=== PATIENT | male | born 1955 | race African-American/Black ===

== ENCOUNTER 2017-04-03 20:01 | Inpatient (IN) | payer OTHER ==
[~2017-04-03] VITALS: Ht 175.3 cm; Wt 91.6 kg
[2017-04-03 20:01] VITALS: BP 145/85
[2017-04-03] MEDS ORDERED: Solu-MEDROL 125mg Inj IVP ONE (20:15)
[2017-04-03] MEDS ORDERED: Sodium Chloride 500ML 500 ML IV ONE (20:15)
[2017-04-03] MEDS: Ipratropium 0.02% Inh Soln 2.5ml UD HHN SCH ×3 (20:27→20:57)
[2017-04-03] MEDS: Albuterol ud Inhalation HHN SCH ×3 (20:27→20:57)
[2017-04-03 21:15] LABS: BASOPHILS % (AUTO) 2.3 % (0.0-2.0); EOSINOPHILS % (AUTO) 0.3 % (0.0-3.0); HEMATOCRIT 39.1 % (42.0-52.0); HEMOGLOBIN 12.9 G/DL (14.2-18.0); MEAN CORPUSCULAR VOLUME 86 FL (80-99); MONOCYTES % (AUTO) 13.5 % (1.0-10.0); NEUTROPHILS % (AUTO) 74.8 % (45.0-75.0); PLATELET COUNT 356 K/UL (150-450); RED BLOOD COUNT 4.53 M/UL (4.70-6.10); RED CELL DISTRIBUTION WIDTH 12.5 % (11.6-14.8)
[2017-04-03 21:16] LABS: APPEARANCE,URINE CLEAR; BILIRUBIN, URINE NEGATIVE (NEGATIVE); COLOR,URINE PALE YELLOW; GLUCOSE, URINE (UA) NEGATIVE (NEGATIVE); KETONES,URINE NEGATIVE (NEGATIVE); LEUKOCYTE ESTERASE ,URINE NEGATIVE (NEGATIVE); NITRITE,URINE NEGATIVE (NEGATIVE); PH,URINE 5 (4.5-8.0); PROTEIN,URINE 2+ (NEGATIVE); UROBILINOGEN,URINE NORMAL MG/DL (0.0-1.0)
[2017-04-03 21:23] LABS: ANION GAP 8 mmol/L (5-15); BLOOD UREA NITROGEN 9 mg/dL (7-18); CARBON DIOXIDE 29 MMOL/L (21-32); CHLORIDE 101 MMOL/L (98-107); CREATININE 1.2 MG/DL (0.55-1.30); POTASSIUM 2.9 MMOL/L (3.5-5.1); SODIUM 137 MMOL/L (136-145)
[2017-04-03 21:36] LABS: ALANINE AMINOTRANSFERASE 21 U/L (12-78); ALBUMIN 3.7 G/DL (3.4-5.0); ALBUMIN/GLOBULIN RATIO 0.9 (1.0-2.7); ALKALINE PHOSPHATASE 81 U/L (46-116); ASPARTATE AMINO TRANSFERASE 18 U/L (15-37); BILIRUBIN,TOTAL 0.2 MG/DL (0.2-1.0); CKMB 1.3 NG/ML (0.0-3.6); CREATINE KINASE 331 U/L (26-308)
[2017-04-03] MEDS ORDERED: Nitroglycerin Subl 0.4mg tab SL PRN ×2 (21:45→22:00)
[2017-04-03] MEDS ORDERED: Enalaprilat 2.5mg/2ml Inj IV PRN (22:00)
[2017-04-03] MEDS ORDERED: Ketorolac 30mg Inj IV PRN (22:00)
[2017-04-03] MEDS ORDERED: Morphine Sulfate 2mg/ml Inj IVP PRN (22:00)
[2017-04-03] MEDS ORDERED: dilTIAZem HCl 25mg/5ml Inj IV PRN (22:00)
[2017-04-03] MEDS ORDERED: Miralax 17gm pkt ORAL PRN (22:00)
[2017-04-03] MEDS ORDERED: Albuterol/Ipratropium 3ml neb HHN PRN (22:00)
[2017-04-03 22:01] VITALS: BP 139/71
--- NOTE | 2017-04-03 22:34 | Emergency Room Report ---
History of Present Illness General Chief Complaint: Dyspnea/Respdistress Source: Patient Present Illness HPI 60-year-old male presents ED for evaluation. Patient coming from [facility] and shoulder today complaining of shortness of breath. Per EMS patient was wheezing and was given breathing treatments. Patient states he is feeling somewhat better. Denies history of back. Smoking or drug use. History. Denies chest pain. Denies fevers or chills or cough. No other aggravating relieving factors. Denies any other associated symptoms Allergies: Coded Allergies: No Known Allergies (Unverified , 04/03/17) Patient History Past Medical History: none Past Surgical History: none Pertinent Family History: none Social History: Denies: smoking, alcohol use, drug use Immunizations: UTD Reviewed Nursing Documentation: PMH: Agreed, PSxH: Agreed Nursing Documentation-PMH Hx Hypertension: Yes Hx Diabetes: Yes Review of Systems All Other Systems: negative except mentioned in HPI Physical Exam Vital Signs Date Time Temp Pulse Resp B/P (MAP) Pulse Ox O2 Delivery O2 Flow Rate FiO2 04/03/17 19:54 99.0 71 20 145/85 99 Room Air 04/03/17 20:27 21 Sp02 EP Interpretation: reviewed, normal General Appearance: no apparent distress, alert, GCS 15, non-toxic Head: normocephalic, atraumatic Eyes: bilateral eye normal inspection, bilateral eye PERRL ENT: hearing grossly normal, normal pharynx, no angioedema, normal voice Neck: full range of motion, supple/symm/no masses Respiratory: chest non-tender, speaking full sentences, wheezing Cardiovascular #1: no edema, tachycardia Cardiovascular #2: 2+ carotid (R), 2+ carotid (L), 2+ radial (R), 2+ radial (L) , 2+ dorsalis pedis (R), 2+ dorsalis pedis (L) Gastrointestinal: normal bowel sounds, non tender, soft, non-distended, no guarding, no rebound Rectal: deferred Genitourinary: normal inspection, no CVA tenderness Musculoskeletal: back normal, gait/station normal, normal range of motion, non- tender Neurologic: alert, oriented x3, responsive, motor strength/tone normal, sensory intact, speech normal Psychiatric: judgement/insight normal, memory normal, mood/affect normal, no suicidal/homicidal ideation Reflexes: 3+ bicep (R), 3+ bicep (L), 3+ tricep (R), 3+ tricep (L), 3+ knee (R) , 3+ knee (L) Skin: normal color, no rash, warm/dry, well hydrated Lymphatic: no adenopathy Medical Decision Making Diagnostic Impression: Primary Impression: Respiratory distress Additional Impression: ACS (acute coronary syndrome) ER Course Hospital Course 60-year-old male presents ED complaining of shortness of breath, wheezing Differential diagnoses include: SC/unstable angina, COPD, pneumonia Clinical course Patient placed on stretcher. on diagnostic cardiac sonographer. After initial history and physical I ordered labs, EKG, chest x-ray, nebs labs reviewed- no leukocytosis, hb/hct stable, electrolytes ok, trop 0.131 EKG - sinus tachycardia Chest x-ray- no acute infiltrate noted After breathing treatments patient states breathing has improved. However he is complaining of chest pain which just started. Midsternal, pressure-like. Has history of hypertension. repeat EKG also shows sinus tachy Given nitroglycerin with chest pain resolved. Given elevated troponin we will admit patient. Given aspirin. Case discussed with Dr. Castellon and he agreed to accept the patient to his service for further care and support I. I feel this is a highly complex case requiring extensive working including EKG/Rhythm strip, Xray/CT/US, Blood/urine lab work, repeat exams while in ED, and administration of strong opiates/narcotics for pain control, admission to hospital or close patient follow up. Diagnosis - ACS, respiratory distress admitted to telemetry in serious condition Labs Test 04/03/17 20:46 White Blood Count 10.0 K/UL (4.8-10.8) Red Blood Count 4.53 M/UL (4.70-6.10) Hemoglobin 12.9 G/DL (14.2-18.0) Hematocrit 39.1 % (42.0-52.0) Mean Corpuscular Volume 86 FL (80-99) Mean Corpuscular Hemoglobin 28.4 PG (27.0-31.0) Mean Corpuscular Hemoglobin Concent 32.9 G/DL (32.0-36.0) Red Cell Distribution Width 12.5 % (11.6-14.8) Platelet Count 356 K/UL (150-450) Mean Platelet Volume 5.8 FL (6.5-10.1) Neutrophils (%) (Auto) 74.8 % (45.0-75.0) Lymphocytes (%) (Auto) 9.0 % (20.0-45.0) Monocytes (%) (Auto) 13.5 % (1.0-10.0) Eosinophils (%) (Auto) 0.3 % (0.0-3.0) Basophils (%) (Auto) 2.3 % (0.0-2.0) Urine Color Pale yellow Urine Appearance Clear Urine pH 5 (4.5-8.0) Urine Specific [place] 1.015 (1.005-1.035) Urine Protein 2+ (NEGATIVE) Urine Glucose (UA) Negative (NEGATIVE) Urine Ketones Negative (NEGATIVE) Urine Occult Blood 4+ (NEGATIVE) Urine Nitrite Negative (NEGATIVE) Urine Bilirubin Negative (NEGATIVE) Urine Urobilinogen Normal MG/DL (0.0-1.0) Urine Leukocyte Esterase Negative (NEGATIVE) Urine RBC 0-2 /HPF (0 - 0) Urine WBC 0-2 /HPF (0 - 0) Urine Squamous Epithelial Cells None /LPF (NONE/OCC) Urine Bacteria Few /HPF (NONE) Urine Yeast Few /HPF (NONE) Sodium Level 137 MMOL/L (136-145) Potassium Level 2.9 MMOL/L (3.5-5.1) Chloride Level 101 MMOL/L (98-107) Carbon Dioxide Level 29 MMOL/L (21-32) Anion Gap 8 mmol/L (5-15) Blood Urea Nitrogen 9 mg/dL (7-18) Creatinine 1.2 MG/DL (0.55-1.30) Estimat Glomerular Filtration Rate > 60 mL/min (>60) Glucose Level 124 MG/DL (74-106) Lactic Acid Level 1.60 mmol/L (0.66-2.22) Calcium Level 9.0 MG/DL (8.5-10.1) Total Bilirubin 0.2 MG/DL (0.2-1.0) Aspartate Amino Transf (AST/SGOT) 18 U/L (15-37) Alanine Aminotransferase (ALT/SGPT) 21 U/L (12-78) Alkaline Phosphatase 81 U/L (46-116) Total Creatine Kinase 331 U/L (26-308) Creatine Kinase MB 1.3 NG/ML (0.0-3.6) Creatine Kinase MB Relative Index 0.3 Troponin I 0.193 ng/mL (0.000-0.056) Pro-B-Type Natriuretic Peptide 252 pg/mL (0-125) Total Protein 7.9 G/DL (6.4-8.2) Albumin 3.7 G/DL (3.4-5.0) Globulin 4.2 g/dL Albumin/Globulin Ratio 0.9 (1.0-2.7) EKG Diagnostic Results Rate: tachycardiac Rhythm: NSR ST Segments: no acute changes ASA given to the pt in ED: Yes Rhythm Strip Diag. Results EP Interpretation: yes Rhythm: NSR, no PVC's, no ectopy Chest X-Ray Diagnostic Results Chest X-Ray Diagnostic Results : Chest X-Ray Ordered: Yes # of Views/Limited/Complete: 1 View Indication: Shortness of Breath EP Interpretation: Yes Interpretation: no consolidation, no effusion, no pneumothorax, no acute cardiopulmonary disease Impression: No acute disease Electronically Signed by: Electronically signed by Oscar Mckenzie MD Last Vital Signs Date Time Temp Pulse Resp B/P (MAP) Pulse Ox O2 Delivery O2 Flow Rate FiO2 04/03/17 22:04 168/96 04/03/17 21:16 108 22 100 Room Air 21 04/03/17 20:01 99.0 Status: improved Disposition: ADMITTED INPATIENT Condition: Serious Referrals: NON PHYSICIAN (PCP) OSCAR MCKENZIE M.D. Apr 03, 2017 22:34
[2017-04-03] MEDS ORDERED: METFORMIN HCL500 M1 ORAL (23:54)
[2017-04-03] MEDS ORDERED: MICROZIDE12.5 M1 PO (23:56)
[2017-04-03] MEDS ORDERED: ATORVASTATIN CA20 MG ORAL (23:56)
[2017-04-04] VITALS (8 sets, daily range): BP systolic 120–157; BP diastolic 68–89
[2017-04-04] MEDS ORDERED: Potassium Chloride 40 MEQ in Sodium Chloride 500ML 550 ML IVPB ONE (05:45)
[2017-04-04] MEDS ORDERED: SODIUM CHLORIDE IVPB SCH ×2 (06:00)
[2017-04-04] MEDS ORDERED: POTASSIUM CHLORIDE IVPB SCH ×2 (06:00)
[2017-04-04 07:22] LABS: HEMATOCRIT 37.4 % (42.0-52.0); HEMOGLOBIN 12.5 G/DL (14.2-18.0); MEAN CORPUSCULAR VOLUME 86 FL (80-99); PLATELET COUNT 340 K/UL (150-450); RED BLOOD COUNT 4.34 M/UL (4.70-6.10); WHITE BLOOD COUNT 7.9 K/UL (4.8-10.8)
[2017-04-04 07:47] LABS: CHOLESTEROL 229 MG/DL (< 200); HDL CHOLESTEROL 45 MG/DL (40-60); TRIGLYCERIDES 29 MG/DL (30-150)
[2017-04-04 08:04] LABS: INR 1.1 (0.9-1.1)
[2017-04-04] MEDS ORDERED: Aspirin Baby 81mg ORAL SCH (09:00)
[2017-04-04] MEDS: Potassium Chloride 40 MEQ in Sodium Chloride 500ML 550 ML IVPB SCH ×2 (09:24→14:16)
[2017-04-04] MEDS: Heparin 5000 units/ml inj SUBQ SCH ×2 (09:26→20:42)
--- NOTE | 2017-04-04 10:25 | Diagnostic Imaging Report ---
Indication: Shortness of breath Technique: One view of the chest Comparison: none Findings: There is equivocal minimal interstitial congestion. No focal infiltrates or effusions. The heart size is normal. The aorta is tortuous. The upper mediastinum is unremarkable. Impression: Equivocal minimal interstitial congestion-correlate with clinical findings. Negative for infiltrate
--- NOTE | 2017-04-04 13:11 | History and Physical ---
History of Present Illness General Date patient seen: Apr 04, 2017 Reason for Hospitalization: Dyspnea/Respdistress Present Illness HPI 60-year-old male with hx of DM, HTN presented to ER ED for evaluation of shortness of breath. Per EMS patient was wheezing and was given breathing treatments. Patient states he is feeling somewhat better. Denies history of smoking or drug use. He was taking shower when he felt that his SOB got worse. Allergies: Coded Allergies: No Known Allergies (Unverified , 04/03/17) Medication History Scheduled Atorvastatin Calcium* (Atorvastatin Calcium*), Unknown Dose ORAL BEDTIME, ( Reported) Metformin Hcl* (Metformin Hcl*), 500 MG ORAL DAILY, (Reported) Miscellaneous Medications Hydrochlorothiazide (Microzide), Unknown Dose PO, (Reported) Patient History Healthcare decision maker Resuscitation status Full Code Advanced Directive on File Past Medical/Surgical History Past Medical/Surgical History: (1) Diabetes mellitus (2) Hypertension Review of Systems All Other Systems: negative except mentioned in HPI Physical Exam General Appearance: WD/WN Lines, tubes and drains: peripheral HEENT: normocephalic, atraumatic Neck: non-tender, normal alignment Respiratory/Chest: chest wall non-tender, lungs clear Breasts: no masses Cardiovascular/Chest: normal rate, no JVD Abdomen: normal bowel sounds, soft Last 24 Hour Vital Signs Date Time Temp Pulse Resp B/P (MAP) Pulse Ox O2 Delivery O2 Flow Rate FiO2 04/04/17 12:00 97.7 71 18 146/86 95 Nasal Cannula 2.0 04/04/17 08:00 98.1 89 18 153/83 96 Nasal Cannula 2.0 04/04/17 04:00 81 04/04/17 04:00 97.7 82 18 120/68 98 Nasal Cannula 2.0 04/04/17 00:36 98.1 98 20 145/82 98 Nasal Cannula 2.0 90 04/04/17 00:27 99.0 97 17 137/73 98 Nasal Cannula 2.0 21 04/04/17 00:01 99.0 97 17 137/73 98 Nasal Cannula 2.0 04/03/17 22:04 168/96 04/03/17 22:01 98.9 105 18 139/71 99 Room Air 04/03/17 21:16 108 22 100 Room Air 21 04/03/17 20:58 106 22 100 Room Air 21 04/03/17 20:57 105 22 100 Room Air 21 04/03/17 20:43 102 22 100 Room Air 21 04/03/17 20:43 102 22 100 Room Air 21 04/03/17 20:27 99 22 95 Room Air 21 04/03/17 20:01 99.0 110 20 145/85 99 Room Air 04/03/17 20:01 110 20 Room Air 04/03/17 19:54 99.0 71 20 145/85 99 Room Air Intake and Output 04/03/17 04/04/17 19:00 07:00 Intake Total 500 ml Balance 500 ml IV Total 500 ml # Voids 2 Laboratory Tests Test 04/03/17 20:46 04/04/17 06:20 White Blood Count 10.0 K/UL (4.8-10.8) 7.9 K/UL (4.8-10.8) Red Blood Count 4.53 M/UL (4.70-6.10) L 4.34 M/UL (4.70-6.10) L Hemoglobin 12.9 G/DL (14.2-18.0) L 12.5 G/DL (14.2-18.0) L Hematocrit 39.1 % (42.0-52.0) L 37.4 % (42.0-52.0) L Mean Corpuscular Volume 86 FL (80-99) 86 FL (80-99) Mean Corpuscular Hemoglobin 28.4 PG (27.0-31.0) 28.9 PG (27.0-31.0) Mean Corpuscular Hemoglobin Concent 32.9 G/DL (32.0-36.0) 33.5 G/DL (32.0-36.0) Red Cell Distribution Width 12.5 % (11.6-14.8) 12.0 % (11.6-14.8) Platelet Count 356 K/UL (150-450) 340 K/UL (150-450) Mean Platelet Volume 5.8 FL (6.5-10.1) L 5.8 FL (6.5-10.1) L Neutrophils (%) (Auto) 74.8 % (45.0-75.0) % (45.0-75.0) Lymphocytes (%) (Auto) 9.0 % (20.0-45.0) L % (20.0-45.0) Monocytes (%) (Auto) 13.5 % (1.0-10.0) H % (1.0-10.0) Eosinophils (%) (Auto) 0.3 % (0.0-3.0) % (0.0-3.0) Basophils (%) (Auto) 2.3 % (0.0-2.0) H % (0.0-2.0) Urine Color Pale yellow Urine Appearance Clear Urine pH 5 (4.5-8.0) Urine Specific [place] 1.015 (1.005-1.035) Urine Protein 2+ (NEGATIVE) H Urine Glucose (UA) Negative (NEGATIVE) Urine Ketones Negative (NEGATIVE) Urine Occult Blood 4+ (NEGATIVE) H Urine Nitrite Negative (NEGATIVE) Urine Bilirubin Negative (NEGATIVE) Urine Urobilinogen Normal MG/DL (0.0-1.0) Urine Leukocyte Esterase Negative (NEGATIVE) Urine RBC 0-2 /HPF (0 - 0) H Urine WBC 0-2 /HPF (0 - 0) Urine Squamous Epithelial Cells None /LPF (NONE/OCC) Urine Bacteria Few /HPF (NONE) Urine Yeast Few /HPF (NONE) H Sodium Level 137 MMOL/L (136-145) Potassium Level 2.9 MMOL/L (3.5-5.1) L Chloride Level 101 MMOL/L (98-107) Carbon Dioxide Level 29 MMOL/L (21-32) Anion Gap 8 mmol/L (5-15) Blood Urea Nitrogen 9 mg/dL (7-18) Creatinine 1.2 MG/DL (0.55-1.30) Estimat Glomerular Filtration Rate > 60 mL/min (>60) Glucose Level 124 MG/DL (74-106) H Lactic Acid Level 1.60 mmol/L (0.66-2.22) Calcium Level 9.0 MG/DL (8.5-10.1) Total Bilirubin 0.2 MG/DL (0.2-1.0) Aspartate Amino Transf (AST/SGOT) 18 U/L (15-37) Alanine Aminotransferase (ALT/SGPT) 21 U/L (12-78) Alkaline Phosphatase 81 U/L (46-116) Total Creatine Kinase 331 U/L (26-308) H Creatine Kinase MB 1.3 NG/ML (0.0-3.6) Creatine Kinase MB Relative Index 0.3 Troponin I 0.193 ng/mL (0.000-0.056) Pro-B-Type Natriuretic Peptide 252 pg/mL (0-125) H Total Protein 7.9 G/DL (6.4-8.2) Albumin 3.7 G/DL (3.4-5.0) Globulin 4.2 g/dL Albumin/Globulin Ratio 0.9 (1.0-2.7) L Differential Total Cells Counted 100 Neutrophils % (Manual) 89 % (45-75) H Lymphocytes % (Manual) 9 % (20-45) L Monocytes % (Manual) 2 % (1-10) Eosinophils % (Manual) 0 % (0-3) Basophils % (Manual) 0 % (0-2) Band Neutrophils 0 % (0-8) Platelet Estimate Adequate Platelet Morphology Normal Red Blood Cell Morphology Normal Prothrombin Time 11.0 SEC (9.30-11.50) Prothromb Time International Ratio 1.1 (0.9-1.1) Activated Partial Thromboplast Time 31 SEC (23-33) C-Reactive Protein, Quantitative 2.1 mg/dL (0.00-0.90) H Triglycerides Level 29 MG/DL (30-150) L Cholesterol Level 229 MG/DL (< 200) H LDL Cholesterol 166 mg/dL (<100) H HDL Cholesterol 45 MG/DL (40-60) Cholesterol/HDL Ratio 5.1 (3.3-4.4) H Thyroid Stimulating Hormone (TSH) 0.052 uiU/mL (0.358-3.740) Microbiology Date/Time Source Procedure Growth Status 04/03/17 20:46 Nasal Nares Influenza Types A,B Antigen (JOSE ANTONIO) - Final Complete Height (Feet): 5 Height (Inches): 9.00 Weight (Pounds): 202 Medications Current Medications Medications (Trade) Dose Ordered Sig/Edward Route PRN Reason Start Time Stop Time Status Last Admin Dose Admin Acetaminophen (Tylenol) 650 mg Q4H PRN ORAL FEVER 04/03/17 22:00 05/03/17 21:59 Albuterol/ Ipratropium (Albuterol/ Ipratropium) 3 ml EVERY 4 HOURS PRN HHN Shortness of Breath 04/03/17 22:00 04/08/17 21:59 Aspirin (ASA) 162 mg DAILY ORAL 04/04/17 09:00 05/04/17 08:59 04/04/17 09:25 Diltiazem HCl (Cardizem) 10 mg EVERY HOUR PRN IV heart rate more than 120, 04/03/17 22:00 05/03/17 21:59 Enalaprilat (Vasotec) 2.5 mg EVERY 6 HOURS PRN IV sbp more than 160 04/03/17 22:00 05/03/17 21:59 Heparin Sodium (Porcine) (Heparin 5000 units/ml) 5,000 units EVERY 12 HOURS SUBQ 04/04/17 09:00 05/04/17 08:59 04/04/17 09:26 Ketorolac Tromethamine (Toradol 30mg) 30 mg Q6HR PRN IV moderate pain ( 4-6) 04/03/17 22:00 04/08/17 21:59 Morphine Sulfate (Morphine Sulfate) 2 mg EVERY 4 HOURS PRN IVP severe Pain (Pain Scale 7-10) 04/03/17 22:00 04/10/17 21:59 Nitroglycerin (Ntg) 0.4 mg Q5M PRN SL Prn Chest Pain 04/03/17 21:45 05/03/17 21:44 04/03/17 22:04 Nitroglycerin (Ntg) 0.4 mg Q5M PRN SL Prn Chest Pain 04/03/17 22:00 05/03/17 21:59 Ondansetron HCl (Zofran) 4 mg Q6H PRN IVP Nausea & Vomiting 04/03/17 22:00 05/03/17 21:59 Polyethylene Glycol (Miralax) 17 gm DAILYPRN PRN ORAL Constipation 04/03/17 22:00 05/03/17 21:59 Potassium Chloride 40 meq/ Sodium Chloride 570 ml @ 142.5 mls/ hr EVERY 4 HOURS IVPB 04/04/17 09:00 04/04/17 16:59 04/04/17 09:24 Temazepam (Restoril) 15 mg HSPRN PRN ORAL Insomnia 04/03/17 22:00 04/10/17 21:59 Assessment/Plan Problem List: (1) Respiratory distress ICD Codes: R06.03 - Acute respiratory distress SNOMED: 219880681 (2) ACS (acute coronary syndrome) ICD Codes: I24.9 - Acute ischemic heart disease, unspecified SNOMED: 860327352 (3) Elevated troponin ICD Codes: R74.8 - Abnormal levels of other serum enzymes SNOMED: 423860921, 644366020, 424220539 (4) Diabetes mellitus ICD Codes: E11.9 - Type 2 diabetes mellitus without complications SNOMED: 92809446 (5) Hypertension ICD Codes: I10 - Essential (primary) hypertension SNOMED: 43676575 Assessment/Plan echo CT anigo to rule out PE f/u troponin symptomatic treatment ILENE HANNA Apr 04, 2017 13:11
[2017-04-04 14:45] LABS: ALANINE AMINOTRANSFERASE 21 U/L (12-78); ALBUMIN 3.3 G/DL (3.4-5.0); ALBUMIN/GLOBULIN RATIO 0.8 (1.0-2.7); ALKALINE PHOSPHATASE 72 U/L (46-116); ANION GAP 14 mmol/L (5-15); ASPARTATE AMINO TRANSFERASE 22 U/L (15-37); BILIRUBIN,TOTAL 0.1 MG/DL (0.2-1.0); BLOOD UREA NITROGEN 9 mg/dL (7-18); CARBON DIOXIDE 23 MMOL/L (21-32); CHLORIDE 104 MMOL/L (98-107); CREATININE 1.1 MG/DL (0.55-1.30); POTASSIUM 3.6 MMOL/L (3.5-5.1); SODIUM 141 MMOL/L (136-145)
--- NOTE | 2017-04-04 15:18 | Cardiology Progress Note ---
Assessment/Plan Assessment/Plan [id number] nstemi dyspnea cardiac cause ? dm htn hld tobacco use do egk minor st changes echo trop ekg bb ntp statin ecotirn if recurent cp will need antiocoag or if cardiac enzyem are abn will likely need further cardiac valdes Objective Last 24 Hour Vital Signs Date Time Temp Pulse Resp B/P (MAP) Pulse Ox O2 Delivery O2 Flow Rate FiO2 04/04/17 12:00 90 04/04/17 12:00 97.7 71 18 146/86 95 Nasal Cannula 2.0 04/04/17 08:00 86 04/04/17 08:00 98.1 89 18 153/83 96 Nasal Cannula 2.0 04/04/17 04:00 81 04/04/17 04:00 97.7 82 18 120/68 98 Nasal Cannula 2.0 04/04/17 00:36 98.1 98 20 145/82 98 Nasal Cannula 2.0 90 04/04/17 00:27 99.0 97 17 137/73 98 Nasal Cannula 2.0 21 04/04/17 00:01 99.0 97 17 137/73 98 Nasal Cannula 2.0 04/03/17 22:04 168/96 04/03/17 22:01 98.9 105 18 139/71 99 Room Air 04/03/17 21:16 108 22 100 Room Air 21 04/03/17 20:58 106 22 100 Room Air 21 04/03/17 20:57 105 22 100 Room Air 21 04/03/17 20:43 102 22 100 Room Air 21 04/03/17 20:43 102 22 100 Room Air 21 04/03/17 20:27 99 22 95 Room Air 21 04/03/17 20:01 99.0 110 20 145/85 99 Room Air 04/03/17 20:01 110 20 Room Air 04/03/17 19:54 99.0 71 20 145/85 99 Room Air Intake and Output 04/03/17 04/04/17 19:00 07:00 Intake Total 500 ml Balance 500 ml IV Total 500 ml # Voids 2 Laboratory Tests Test 04/03/17 20:46 04/04/17 06:20 White Blood Count 10.0 K/UL (4.8-10.8) 7.9 K/UL (4.8-10.8) Red Blood Count 4.53 M/UL (4.70-6.10) L 4.34 M/UL (4.70-6.10) L Hemoglobin 12.9 G/DL (14.2-18.0) L 12.5 G/DL (14.2-18.0) L Hematocrit 39.1 % (42.0-52.0) L 37.4 % (42.0-52.0) L Mean Corpuscular Volume 86 FL (80-99) 86 FL (80-99) Mean Corpuscular Hemoglobin 28.4 PG (27.0-31.0) 28.9 PG (27.0-31.0) Mean Corpuscular Hemoglobin Concent 32.9 G/DL (32.0-36.0) 33.5 G/DL (32.0-36.0) Red Cell Distribution Width 12.5 % (11.6-14.8) 12.0 % (11.6-14.8) Platelet Count 356 K/UL (150-450) 340 K/UL (150-450) Mean Platelet Volume 5.8 FL (6.5-10.1) L 5.8 FL (6.5-10.1) L Neutrophils (%) (Auto) 74.8 % (45.0-75.0) % (45.0-75.0) Lymphocytes (%) (Auto) 9.0 % (20.0-45.0) L % (20.0-45.0) Monocytes (%) (Auto) 13.5 % (1.0-10.0) H % (1.0-10.0) Eosinophils (%) (Auto) 0.3 % (0.0-3.0) % (0.0-3.0) Basophils (%) (Auto) 2.3 % (0.0-2.0) H % (0.0-2.0) Urine Color Pale yellow Urine Appearance Clear Urine pH 5 (4.5-8.0) Urine Specific [place] 1.015 (1.005-1.035) Urine Protein 2+ (NEGATIVE) H Urine Glucose (UA) Negative (NEGATIVE) Urine Ketones Negative (NEGATIVE) Urine Occult Blood 4+ (NEGATIVE) H Urine Nitrite Negative (NEGATIVE) Urine Bilirubin Negative (NEGATIVE) Urine Urobilinogen Normal MG/DL (0.0-1.0) Urine Leukocyte Esterase Negative (NEGATIVE) Urine RBC 0-2 /HPF (0 - 0) H Urine WBC 0-2 /HPF (0 - 0) Urine Squamous Epithelial Cells None /LPF (NONE/OCC) Urine Bacteria Few /HPF (NONE) Urine Yeast Few /HPF (NONE) H Sodium Level 137 MMOL/L (136-145) 141 MMOL/L (136-145) Potassium Level 2.9 MMOL/L (3.5-5.1) L 3.6 MMOL/L (3.5-5.1) Chloride Level 101 MMOL/L (98-107) 104 MMOL/L (98-107) Carbon Dioxide Level 29 MMOL/L (21-32) 23 MMOL/L (21-32) Anion Gap 8 mmol/L (5-15) 14 mmol/L (5-15) Blood Urea Nitrogen 9 mg/dL (7-18) 9 mg/dL (7-18) Creatinine 1.2 MG/DL (0.55-1.30) 1.1 MG/DL (0.55-1.30) Estimat Glomerular Filtration Rate > 60 mL/min (>60) > 60 mL/min (>60) Glucose Level 124 MG/DL (74-106) H 191 MG/DL (74-106) H Lactic Acid Level 1.60 mmol/L (0.66-2.22) Calcium Level 9.0 MG/DL (8.5-10.1) 9.0 MG/DL (8.5-10.1) Total Bilirubin 0.2 MG/DL (0.2-1.0) 0.1 MG/DL (0.2-1.0) L Aspartate Amino Transf (AST/SGOT) 18 U/L (15-37) 22 U/L (15-37) Alanine Aminotransferase (ALT/SGPT) 21 U/L (12-78) 21 U/L (12-78) Alkaline Phosphatase 81 U/L (46-116) 72 U/L (46-116) Total Creatine Kinase 331 U/L (26-308) H Creatine Kinase MB 1.3 NG/ML (0.0-3.6) Creatine Kinase MB Relative Index 0.3 Troponin I 0.193 ng/mL (0.000-0.056) Pro-B-Type Natriuretic Peptide 252 pg/mL (0-125) H Total Protein 7.9 G/DL (6.4-8.2) 7.4 G/DL (6.4-8.2) Albumin 3.7 G/DL (3.4-5.0) 3.3 G/DL (3.4-5.0) L Globulin 4.2 g/dL 4.1 g/dL Albumin/Globulin Ratio 0.9 (1.0-2.7) L 0.8 (1.0-2.7) L Differential Total Cells Counted 100 Neutrophils % (Manual) 89 % (45-75) H Lymphocytes % (Manual) 9 % (20-45) L Monocytes % (Manual) 2 % (1-10) Eosinophils % (Manual) 0 % (0-3) Basophils % (Manual) 0 % (0-2) Band Neutrophils 0 % (0-8) Platelet Estimate Adequate Platelet Morphology Normal Red Blood Cell Morphology Normal Prothrombin Time 11.0 SEC (9.30-11.50) Prothromb Time International Ratio 1.1 (0.9-1.1) Activated Partial Thromboplast Time 31 SEC (23-33) C-Reactive Protein, Quantitative 2.1 mg/dL (0.00-0.90) H Triglycerides Level 29 MG/DL (30-150) L Cholesterol Level 229 MG/DL (< 200) H LDL Cholesterol 166 mg/dL (<100) H HDL Cholesterol 45 MG/DL (40-60) Cholesterol/HDL Ratio 5.1 (3.3-4.4) H Thyroid Stimulating Hormone (TSH) 0.052 uiU/mL (0.358-3.740) Microbiology Date/Time Source Procedure Growth Status 04/03/17 20:46 Nasal Nares Influenza Types A,B Antigen (JOSE ANTONIO) - Final Complete ANGELLAEDD Apr 04, 2017 15:18
--- NOTE | 2017-04-04 16:17 | Diagnostic Imaging Report ---
ndication: Shortness of breath Technique: IV administration nonionic contrast. Spiral acquisitions obtained from the lung bases to the lung apices. Multiplanar and 3-D reconstructions were generated. Total dose length product 936.26 mGycm. CTDIvol(s) 26.89 mGy. Dose reduction achieved using automated exposure control Comparison: none Findings: Good-quality pulmonary artery opacification. No intraluminal filling defects or other findings to suggest acute pulmonary embolus demonstrated. Normal caliber pulmonary arteries. Upper limits normal heart size. No evidence of right ventricular dilatation. No evidence of thoracic aortic aneurysm or dissection. Classic branching anatomy of the great neck vessels. The lungs demonstrate areas of atelectasis or scarring at both lung bases. An irregular focus is seen in the periphery of the inferior right upper lobe, also likely an area of scarring. No infiltrates, effusions, masses, or nodules demonstrated. No evidence of pericardial effusion. Prominent but not frankly enlarged right hilar lymph nodes are demonstrated. No mediastinal mass or adenopathy demonstrated. Subcentimeter low-attenuation lesion is seen in the thyroid isthmus. No axillary or chest wall mass or adenopathy. There is a 17 mm diameter cutaneous lesion in the right chest wall superolateral to the nipple. The bones are unremarkable. The esophagus is gas-filled distally, otherwise unremarkable The included upper abdominal anatomy is remarkable for 2 12 mm segment 4A liver cysts, as well as one or more subcentimeter low-attenuation lesions which are too small to characterize. The adrenals are hypertrophic bilaterally. Prominent but not frankly enlarged lesser sac and periportal lymph nodes are demonstrated. Impression: Negative for evidence of acute pulmonary embolus Areas of pulmonary parenchymal scarring and/or atelectasis as described. No acute pulmonary pathology otherwise 17 mm diameter cutaneous lesion in the right chest wall. Correlate with clinical findings Hepatic cysts. Subcentimeter low-attenuation hepatic lesions, too small to characterize, most likely benign simple cysts or bile hamartomas. No further follow-up necessary Subcentimeter low-attenuation thyroid isthmic lesion. No further follow-up necessary The CT scanner at [facility] is accredited by the [employer] and the scans are performed using protocols designed to limit radiation exposure to as low as reasonably achievable to attain images of sufficient resolution adequate for diagnostic evaluation.
[2017-04-04] MEDS: Metoprolol Tartrate 12.5mg TAB ORAL SCH ×2 (16:23→20:39)
[2017-04-04] MEDS: Nitroglycerin 2% oint pkt TOPIC SCH (18:13)
--- NOTE | 2017-04-04 18:47 | Cardiology Report ---
APPROVED REPORT EXAM: Two-dimensional and M-mode echocardiogram with Doppler and color Doppler. INDICATION Left ventricular function M-Mode DIMENSIONS IVSd0.9 (0.7-1.1cm)Left Atrium (MM)4.5 (1.6-4.0cm) LVDd4.5 (3.5-5.6cm)Aortic Root3.4 (2.0-3.7cm) PWd1.3 (0.7-1.1cm)Aortic Cusp Exc.2.0 (1.5-2.0cm) LVDs1.7 (2.5-4.0cm) PWs1.5 cm Normal left ventricular chamber size, systolic function and wall motion. Left ventricular ejection fraction estimated to be 65-70%. Moderate left ventricular hypertrophy. No evidence of pericardial or pleural effusion. Right cardiac chamber sizes are within normal limits. Moderate left atrial enlargement by 2D. Focal aortic valve sclerosis with adequate cusp excursion. Normal mitral valve leaflets with normal excursion. Mild mitral annulus and aortic root calcification. Pulmonic valve not well visualized. Normal tricuspid valve structure. IVC is normal in size and collapsible with respiration. A color flow and spectral Doppler study was performed and revealed: Mild aortic regurgitation. No mitral regurgitation. Mitral diastolic velocities suggest reduced left ventricular relaxation c/w diastolic dysfunction grade 2. No tricuspid regurgitation.
[2017-04-04] MEDS: Atorvastatin 80mg tab ORAL SCH (20:39)
--- NOTE | 2017-04-04 22:45 | Consultation ---
DATE OF CONSULTATION: 04/04/2017 CARDIOLOGY CONSULTATION CONSULTING PHYSICIAN: Donnell Galdamez M.D. REFERRING PHYSICIAN: Rea Castellon M.D. REASON FOR REFERRAL: Chest pain and abnormal cardiac enzymes. HISTORY OF PRESENT ILLNESS: This is an middle-aged gentleman who has a history of diabetes and hypertension presented to the hospital because of increasing amounts of shortness of breath over the past three weeks. Over the past two weeks, he has had some wheezing and shortness of breath has got up to the point that he is no longer able to walk much. He used to walk to work and he has to stop very frequently because of the shortness of breath. There is no pain or pressure when he does walk however he arrived to the emergency room because of his symptoms. He was actually in the emergency room complaining some pain in the chest as if somebody sitting on his chest. He did receive some nitroglycerin with resolution of the pain and he is no longer having pain since then. He denies having had pain prior to the episode yesterday. Since he has been in the hospital he continues to have some shortness of breath. He uses two pillows for sleeping. There is no PND. Does not have any dizziness or lightheadedness. He has occasional palpitations. PAST MEDICAL HISTORY: Positive for diabetes and high blood pressure. Denies high cholesterol. No history of heart attack, cancer, stroke, hepatitis, tuberculosis, asthma, emphysema. No ulcers. No kidney problems, liver problems, thyroid problems, anemia. He does have some kind arthritis. No HIV, AIDS, prostate problems, or any other medical problems. ALLERGIES: He is not allergic to any medications. SOCIAL HISTORY: He smoked almost one pack per day and less than that actually, drinks occasionally, and uses marijuana. 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 REVIEW OF SYSTEMS: GASTROINTESTINAL: Negative. GENITOURINARY: Negative. PULMONARY: As mentioned in history of present illness with wheezing. No coughing. CONSTITUTIONAL: Negative. NEUROLOGICAL: numbness and tingling sensation in his left hand only, not the rest of arm. LABORATORY AND DIAGNOSTIC DATA: Laboratory values, he has had an EKG performed in the emergency room that showed basically sinus tachycardia with T-wave inversions in III and aVF but not in lead II. There is some minor ST-segment depression in the V6 as well. There are EKGs at least that are in the chart that show also ST-segment depression in II, III, aVF as well as V4, V5, and V6 with minor degree of ST-segment changes in those leads being noted as well. LABORATORY AND DIAGNOSTIC DATA: White count 7, hemoglobin 12.5, and platelet count 340. Laboratories from today are pending. Sodium 137, potassium 3.9, chloride 101, bicarb 21, BUN of 9, creatinine 1.2, and glucose of 124. Lactic acid 1.6. CK of 331. Troponin 0.193 that is from last night and total cholesterol 229 with a LDL of 166 and HDL of 45. TSH is 0.052 and his INR is 1.0 and a PTT of 31. His urinalysis is fairly unremarkable. He did have a chest x-ray in the emergency room interstitial congestion may be a focal in nature. ASSESSMENT AND PLAN: 1. Exertional dyspnea of approximately three weeks duration. 2. Chest pain concerning for coronary syndrome. 3. Abnormal cardiac enzymes likely secondary to above consistent with probable non ST-elevation myocardial infarction. 4. Diabetes. 5. Hypertension. 6. Tobacco use disorder. 7. Hyperlipidemia. Dr. Castellon, this patient was seen in cardiac consultation. The patient no longer having any chest pain, however, he has got multiple risk factors for coronary disease and all other symptoms are concerning for possibility of coronary syndrome. He should be receiving some low doses of diuretics CT was performed of the chest now which he has been back from. He does have history of smoking which certainly can cause some underlying lung disease as well. He does have some ST-segment changes on his EKG that are concerning for coronary syndrome. He should be on some beta-blockers, oxygen, aspirin, statin, and some nitroglycerin for the time being. If he has any recurrent chest pain, he needs to be on some anticoagulation as well I suspect the based on the information that he may actually need some cardiac workup. An echocardiogram has been performed, the results of which are pending at this time. I will review those and repeat cardiac enzymes. Donnell Galdamez M.D. DR: Shamika JOB#: [id number] CC:
[2017-04-05] VITALS: BP 157/96
[2017-04-05 04:00] VITALS: BP 176/100
[2017-04-05] MEDS: Nitroglycerin 2% oint pkt TOPIC SCH ×3 (06:00→18:01)
[2017-04-05 08:00] VITALS: BP 143/82
[2017-04-05] MEDS: Aspirin EC 81mg tab ORAL SCH (08:44)
[2017-04-05] MEDS: Metoprolol Tartrate 12.5mg TAB ORAL SCH (08:45)
[2017-04-05] MEDS: Heparin 5000 units/ml inj SUBQ SCH ×2 (08:46→20:33)
[2017-04-05 10:10] LABS: ANION GAP 13 mmol/L (5-15); BLOOD UREA NITROGEN 14 mg/dL (7-18); CARBON DIOXIDE 21 MMOL/L (21-32); CHLORIDE 106 MMOL/L (98-107); CREATININE 1.2 MG/DL (0.55-1.30); POTASSIUM 3.8 MMOL/L (3.5-5.1); SODIUM 140 MMOL/L (136-145)
[2017-04-05 12:00] VITALS: BP 141/73
--- NOTE | 2017-04-05 13:20 | Pulmonology Progress Note ---
Assessment/Plan Problems: (1) Respiratory distress (2) ACS (acute coronary syndrome) (3) Elevated troponin (4) Diabetes mellitus (5) Hypertension Assessment/Plan check sputum start abx check echo troponin remains high cardiology f/u lots of sputum Subjective Constitutional: Reports: no symptoms HEENT: Repors: no symptoms Allergies: Coded Allergies: No Known Allergies (Unverified , 04/03/17) Objective Last 24 Hour Vital Signs Date Time Temp Pulse Resp B/P (MAP) Pulse Ox O2 Delivery O2 Flow Rate FiO2 04/05/17 12:35 143/82 04/05/17 09:13 99 Nasal Cannula 2.0 28 04/05/17 09:13 Nasal Cannula 2.0 28 04/05/17 09:12 99 20 Room Air 04/05/17 08:45 92 143/82 04/05/17 08:00 99.1 92 19 143/82 96 Nasal Cannula 2.0 04/05/17 06:00 176/100 04/05/17 04:00 98.2 95 25 176/100 97 Nasal Cannula 2.0 04/05/17 04:00 106 04/05/17 00:13 84 20 98 Nasal Cannula 3.0 32 04/05/17 00:06 80 22 97 Nasal Cannula 3.0 32 04/05/17 00:00 98.4 69 20 157/96 97 Nasal Cannula 2.0 04/05/17 00:00 71 04/04/17 20:39 80 152/89 04/04/17 20:00 98.2 80 20 152/89 97 Nasal Cannula 2.0 04/04/17 20:00 82 04/04/17 18:13 157/89 04/04/17 17:38 Nasal Cannula 2.0 28 04/04/17 17:38 97 Nasal Cannula 2.0 28 04/04/17 16:23 70 157/89 04/04/17 16:00 93 04/04/17 15:51 97.3 70 20 157/89 97 Room Air Intake and Output 04/04/17 04/05/17 19:00 07:00 Intake Total 930.0 ml Balance 930.0 ml Intake Oral 360 ml IV Total 570.0 ml # Voids 3 Objective General Appearance: WD/WN, other - obtunded Lines, tubes and drains: peripheral HEENT: normocephalic, atraumatic Neck: non-tender, normal alignment Respiratory/Chest: chest wall non-tender, lungs clear Breasts: no masses, no discharge Cardiovascular/Chest: normal peripheral pulses Abdomen: normal bowel sounds Genitourinary/Rectal: normal genital exam Extremities: normal range of motion Skin Exam: normal pigmentation 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 Microbiology Date/Time Source Procedure Growth Status 04/03/17 20:46 Nasal Nares Influenza Types A,B Antigen (JOSE ANTONIO) - Final Complete 04/03/17 20:46 Urine,Clean Catch Urine Culture - Preliminary Gram Negative Bacillus 1 Gram Negative Bacillus 2 Resulted Laboratory Tests 04/04/17 16:15: Troponin I 0.247H 04/05/17 00:30: Troponin I 0.262H 04/05/17 08:20: Troponin I 0.300H, Sodium Level 140, Potassium Level 3.8, Chloride Level 106, Carbon Dioxide Level 21, Anion Gap 13, Blood Urea Nitrogen 14, Creatinine 1.2, Estimat Glomerular Filtration Rate > 60, Glucose Level 105, Calcium Level 9.0 Current Medications Medications (Trade) Dose Ordered Sig/Edward Route PRN Reason Start Time Stop Time Status Last Admin Dose Admin Acetaminophen (Tylenol) 650 mg Q4H PRN ORAL FEVER 04/03/17 22:00 05/03/17 21:59 Albuterol/ Ipratropium (Albuterol/ Ipratropium) 3 ml EVERY 4 HOURS PRN HHN Shortness of Breath 04/03/17 22:00 04/08/17 21:59 04/05/17 00:06 Aspirin (Ecotrin) 81 mg DAILY ORAL 04/05/17 09:00 05/05/17 08:59 04/05/17 08:44 Atorvastatin Calcium (Lipitor) 80 mg BEDTIME ORAL 04/04/17 21:00 05/04/17 20:59 04/04/17 20:39 Diltiazem HCl (Cardizem) 10 mg EVERY HOUR PRN IV heart rate more than 120, 04/03/17 22:00 05/03/17 21:59 Enalaprilat (Vasotec) 2.5 mg EVERY 6 HOURS PRN IV sbp more than 160 04/03/17 22:00 05/03/17 21:59 Heparin Sodium (Porcine) (Heparin 5000 units/ml) 5,000 units EVERY 12 HOURS SUBQ 04/04/17 09:00 05/04/17 08:59 04/05/17 08:46 Ketorolac Tromethamine (Toradol 30mg) 30 mg Q6HR PRN IV moderate pain ( 4-6) 04/03/17 22:00 04/08/17 21:59 Metoprolol Tartrate (Lopressor) 12.5 mg Q12HR ORAL 04/04/17 16:00 05/04/17 15:59 04/05/17 08:45 Morphine Sulfate (Morphine Sulfate) 2 mg EVERY 4 HOURS PRN IVP severe Pain (Pain Scale 7-10) 04/03/17 22:00 04/10/17 21:59 Nitroglycerin (Nitro-Bid) 1 inch TID@0600,1200,1800 TOPIC 04/04/17 18:00 05/04/17 17:59 04/05/17 12:35 Nitroglycerin (Ntg) 0.4 mg Q5M PRN SL Prn Chest Pain 04/03/17 22:00 05/03/17 21:59 Ondansetron HCl (Zofran) 4 mg Q6H PRN IVP Nausea & Vomiting 04/03/17 22:00 05/03/17 21:59 Piperacillin Sod/ Tazobactam Sod 3.375 gm/Sodium Chloride 110 ml @ 220 mls/hr EVERY 8 HOURS IVPB 04/05/17 14:00 04/12/17 13:59 UNV Polyethylene Glycol (Miralax) 17 gm DAILYPRN PRN ORAL Constipation 04/03/17 22:00 05/03/17 21:59 Temazepam (Restoril) 15 mg HSPRN PRN ORAL Insomnia 04/03/17 22:00 04/10/17 21:59 04/05/17 01:22 ILENE HANNA Apr 05, 2017 13:20
[2017-04-05] MEDS ORDERED: Piperacillin/Tazobactam 3.375 GM in NS 110 ML IVPB SCH (14:00)
[2017-04-05 16:00] VITALS: BP 143/82
--- NOTE | 2017-04-05 17:09 | Cardiology Report ---
APPROVED REPORT EKG Measurement Heart [id number] Normal sinus rhythm Nonspecific ST abnormality Abnormal ECG
--- NOTE | 2017-04-05 17:30 | Cardiology Report ---
APPROVED REPORT EKG Measurement Heart [id number] [place] [id number] Sinus tachycardia Possible Left atrial enlargement Abnormal ECG
--- NOTE | 2017-04-05 17:32 | Cardiology Report ---
APPROVED REPORT EKG Measurement Heart [id number] [place] [id number] Sinus tachycardia Possible Left atrial enlargement Borderline ECG
--- NOTE | 2017-04-05 17:59 | Consultation ---
History of Present Illness General Date patient seen: Apr 05, 2017 Time patient seen: 17:45 Chief Complaint: Dyspnea/Respdistress Present Illness HPI 60 y/o M with hx of DM2, HTN presents to ED on 04/03 with 3 weeks of SOB and 2 weeks of wheezing and MARTINEZ. In ED complained of CP Denies f/c, cough, PND upon admision. However night of admission starting coughing, sore throat. No body aches. no sick contacts, has been alone in room . Afebrile, on leukcoytosis,. u/a neg.ucx growing GNRs. on Zosyn. Allergies: Coded Allergies: No Known Allergies (Unverified , 04/03/17) Medication History Scheduled Atorvastatin Calcium* (Atorvastatin Calcium*), Unknown Dose ORAL BEDTIME, ( Reported) Metformin Hcl* (Metformin Hcl*), 500 MG ORAL DAILY, (Reported) Miscellaneous Medications Hydrochlorothiazide (Microzide), Unknown Dose PO, (Reported) Patient History Healthcare decision maker Resuscitation status Full Code Advanced Directive on File Patient History Narrative Pmhx: as above SHx:He smoked almost one pack per day and less than that actually, drinks occasionally, and uses marijuana. 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 Last 24 Hour Vital Signs Date Time Temp Pulse Resp B/P (MAP) Pulse Ox O2 Delivery O2 Flow Rate FiO2 04/05/17 16:00 98.8 72 21 143/82 97 Nasal Cannula 2.0 04/05/17 12:35 143/82 04/05/17 12:00 99.1 75 20 141/73 96 Nasal Cannula 2.0 04/05/17 09:13 99 Nasal Cannula 2.0 28 04/05/17 09:13 Nasal Cannula 2.0 28 2/7/18 09:12 99 20 Room Air 04/05/17 08:45 92 143/82 04/05/17 08:00 99.1 92 19 143/82 96 Nasal Cannula 2.0 04/05/17 06:00 176/100 04/05/17 04:00 98.2 95 25 176/100 97 Nasal Cannula 2.0 04/05/17 04:00 106 04/05/17 00:13 84 20 98 Nasal Cannula 3.0 32 04/05/17 00:06 80 22 97 Nasal Cannula 3.0 32 04/05/17 00:00 98.4 69 20 157/96 97 Nasal Cannula 2.0 04/05/17 00:00 71 04/04/17 20:39 80 152/89 04/04/17 20:00 98.2 80 20 152/89 97 Nasal Cannula 2.0 04/04/17 20:00 82 04/04/17 18:13 157/89 Intake and Output 04/04/17 04/05/17 19:00 07:00 Intake Total 930.0 ml Balance 930.0 ml Intake Oral 360 ml IV Total 570.0 ml # Voids 3 Laboratory Tests Test 04/05/17 00:30 04/05/17 08:20 04/05/17 16:10 Troponin I 0.262 ng/mL (0.000-0.056) 0.300 ng/mL (0.000-0.056) 0.224 ng/mL (0.000-0.056) Sodium Level 140 MMOL/L (136-145) Potassium Level 3.8 MMOL/L (3.5-5.1) Chloride Level 106 MMOL/L (98-107) Carbon Dioxide Level 21 MMOL/L (21-32) Anion Gap 13 mmol/L (5-15) Blood Urea Nitrogen 14 mg/dL (7-18) Creatinine 1.2 MG/DL (0.55-1.30) Estimat Glomerular Filtration Rate > 60 mL/min (>60) Glucose Level 105 MG/DL (74-106) Calcium Level 9.0 MG/DL (8.5-10.1) Height (Feet): 5 Height (Inches): 9.00 Weight (Pounds): 202 Medications Current Medications Medications (Trade) Dose Ordered Sig/Edward Route PRN Reason Start Time Stop Time Status Last Admin Dose Admin Acetaminophen (Tylenol) 650 mg Q4H PRN ORAL FEVER 04/03/17 22:00 05/03/17 21:59 Albuterol/ Ipratropium (Albuterol/ Ipratropium) 3 ml EVERY 4 HOURS PRN HHN Shortness of Breath 04/03/17 22:00 04/08/17 21:59 04/05/17 00:06 Aspirin (Ecotrin) 81 mg DAILY ORAL 04/05/17 09:00 05/05/17 08:59 04/05/17 08:44 Atorvastatin Calcium (Lipitor) 80 mg BEDTIME ORAL 04/04/17 21:00 05/04/17 20:59 04/04/17 20:39 Diltiazem HCl (Cardizem) 10 mg EVERY HOUR PRN IV heart rate more than 120, 04/03/17 22:00 05/03/17 21:59 Enalaprilat (Vasotec) 2.5 mg EVERY 6 HOURS PRN IV sbp more than 160 04/03/17 22:00 05/03/17 21:59 Heparin Sodium (Porcine) (Heparin 5000 units/ml) 5,000 units EVERY 12 HOURS SUBQ 04/04/17 09:00 05/04/17 08:59 04/05/17 08:46 Ketorolac Tromethamine (Toradol 30mg) 30 mg Q6HR PRN IV moderate pain ( 4-6) 04/03/17 22:00 04/08/17 21:59 Metoprolol Tartrate (Lopressor) 12.5 mg Q12HR ORAL 04/04/17 16:00 05/04/17 15:59 04/05/17 08:45 Morphine Sulfate (Morphine Sulfate) 2 mg EVERY 4 HOURS PRN IVP severe Pain (Pain Scale 7-10) 04/03/17 22:00 04/10/17 21:59 Nitroglycerin (Nitro-Bid) 1 inch TID@0600,1200,1800 TOPIC 04/04/17 18:00 05/04/17 17:59 04/05/17 12:35 Nitroglycerin (Ntg) 0.4 mg Q5M PRN SL Prn Chest Pain 04/03/17 22:00 05/03/17 21:59 Ondansetron HCl (Zofran) 4 mg Q6H PRN IVP Nausea & Vomiting 2/5/18 22:00 05/03/17 21:59 Piperacillin Sod/ Tazobactam Sod 3.375 gm/Sodium Chloride 110 ml @ 27.5 mls/hr EVERY 8 HOURS IVPB 04/05/17 14:00 04/12/17 13:59 04/05/17 15:07 Polyethylene Glycol (Miralax) 17 gm DAILYPRN PRN ORAL Constipation 04/03/17 22:00 05/03/17 21:59 Temazepam (Restoril) 15 mg HSPRN PRN ORAL Insomnia 04/03/17 22:00 04/10/17 21:59 04/05/17 01:22 Assessment/Plan Assessment/Plan Abx: Zosyn 04/05- Assessment: NSTEMI Cough- likely bronchitis -influenza neg Dyspnea- suspect 2ry to above. No PNA or PE on CT chest -CTA chest: Negative for evidence of acute pulmonary embolus. Areas of pulmonary parenchymal scarring and/or atelectasis as described. No acute pulmonary pathology otherwise. 17 mm diameter cutaneous lesion in the right chest wall. Correlate with clinical findings. Hepatic cysts. Subcentimeter low- attenuation hepatic lesions, too small to characterize, most likely benign simple cysts or bile hamartomas. No further follow-up necessary. Subcentimeter low-attenuation thyroid isthmic lesion. No further follow-up necessary. Afebrile, no leukocytosis Asymptomatic bacteriuria -u/a neg; UCx: >100k GNB, 10-20 K GNB#2 Plan: -Switch Zosyn #1 to Azithromycin -monitor QTc -f/u cx -Monitor CBC/BMP, temperatures -pulmonary toilette, aspiration precautions Thank you for this consultation. Will continue to follow along with you. Discussed with Lizbet Arce M.D. Apr 05, 2017 17:58
[2017-04-05 20:00] VITALS: BP 143/87
--- NOTE | 2017-04-05 20:21 | Cardiology Progress Note ---
Assessment/Plan Assessment/Plan nstemi dyspnea cardiac cause ? bronchospasm dm htn hld tobacco use do egk minor st changes echo normal wall motion persistently abn trop but no peak or ginger to be suggestive of mi has bornchospasm will dc bb ntp statin ecotirn once bronchospasm improved an plum jimenez better will consider stress test Subjective Cardiovascular: Denies: chest pain, lightheadedness Respiratory: Reports: cough, shortness of breath Gastrointestinal/Abdominal: Denies: abdominal pain Genitourinary: Denies: burning Objective Last 24 Hour Vital Signs Date Time Temp Pulse Resp B/P (MAP) Pulse Ox O2 Delivery O2 Flow Rate FiO2 04/05/17 18:01 143/82 04/05/17 16:00 86 04/05/17 16:00 98.8 72 21 143/82 97 Nasal Cannula 2.0 04/05/17 12:35 143/82 04/05/17 12:00 71 04/05/17 12:00 99.1 75 20 141/73 96 Nasal Cannula 2.0 04/05/17 09:13 99 Nasal Cannula 2.0 28 04/05/17 09:13 Nasal Cannula 2.0 28 04/05/17 09:12 99 20 Room Air 04/05/17 08:45 92 143/82 04/05/17 08:00 88 04/05/17 08:00 99.1 92 19 143/82 96 Nasal Cannula 2.0 04/05/17 06:00 176/100 04/05/17 04:00 98.2 95 25 176/100 97 Nasal Cannula 2.0 04/05/17 04:00 106 04/05/17 00:13 84 20 98 Nasal Cannula 3.0 32 04/05/17 00:06 80 22 97 Nasal Cannula 3.0 32 04/05/17 00:00 98.4 69 20 157/96 97 Nasal Cannula 2.0 04/05/17 00:00 71 04/04/17 20:39 80 152/89 General Appearance: alert Neck: no JVD Cardiovascular: normal rate, regular rhythm Respiratory/Chest: expiratory wheezing, inspiratory wheezing Abdomen: normal bowel sounds, non tender, soft Extremities: no swelling Intake and Output 04/04/17 04/05/17 19:00 07:00 Intake Total 930.0 ml Balance 930.0 ml Intake Oral 360 ml IV Total 570.0 ml # Voids 3 Laboratory Tests Test 04/05/17 00:30 04/05/17 08:20 04/05/17 16:10 Troponin I 0.262 ng/mL (0.000-0.056) 0.300 ng/mL (0.000-0.056) 0.224 ng/mL (0.000-0.056) Sodium Level 140 MMOL/L (136-145) Potassium Level 3.8 MMOL/L (3.5-5.1) Chloride Level 106 MMOL/L (98-107) Carbon Dioxide Level 21 MMOL/L (21-32) Anion Gap 13 mmol/L (5-15) Blood Urea Nitrogen 14 mg/dL (7-18) Creatinine 1.2 MG/DL (0.55-1.30) Estimat Glomerular Filtration Rate > 60 mL/min (>60) Glucose Level 105 MG/DL (74-106) Calcium Level 9.0 MG/DL (8.5-10.1) Microbiology Date/Time Source Procedure Growth Status 04/03/17 20:46 Nasal Nares Influenza Types A,B Antigen (JOSE ANTONIO) - Final Complete 04/03/17 20:46 Urine,Clean Catch Urine Culture - Preliminary Gram Negative Bacillus 1 Gram Negative Bacillus 2 Resulted EDD PERALES Apr 05, 2017 20:21
[2017-04-05] MEDS: Atorvastatin 80mg tab ORAL SCH (20:31)
[2017-04-05] MEDS: Promethazine/Codeine 5ml UD ORAL PRN (21:29)
[2017-04-05] MEDS ORDERED: Azithromycin 250mg tab ORAL ONE (22:00)
[2017-04-06] VITALS (7 sets, daily range): BP systolic 116–129; BP diastolic 76–85
[2017-04-06] MEDS: Nitroglycerin 2% oint pkt TOPIC SCH ×3 (07:15→18:28)
[2017-04-06 07:58] LABS: BASOPHILS % (AUTO) 1.7 % (0.0-2.0); EOSINOPHILS % (AUTO) 0.2 % (0.0-3.0); HEMATOCRIT 37.3 % (42.0-52.0); HEMOGLOBIN 12.9 G/DL (14.2-18.0); LYMPHOCYTES % (AUTO) 21.7 % (20.0-45.0); MEAN CORPUSCULAR VOLUME 86 FL (80-99); MONOCYTES % (AUTO) 15.9 % (1.0-10.0); NEUTROPHILS % (AUTO) 60.6 % (45.0-75.0); PLATELET COUNT 340 K/UL (150-450); RED BLOOD COUNT 4.35 M/UL (4.70-6.10); RED CELL DISTRIBUTION WIDTH 12.1 % (11.6-14.8); WHITE BLOOD COUNT 9.3 K/UL (4.8-10.8)
[2017-04-06 08:32] LABS: ALANINE AMINOTRANSFERASE 22 U/L (12-78); ALBUMIN/GLOBULIN RATIO 0.7 (1.0-2.7); ALKALINE PHOSPHATASE 67 U/L (46-116); ANION GAP 7 mmol/L (5-15); ASPARTATE AMINO TRANSFERASE 20 U/L (15-37); BILIRUBIN,TOTAL 0.5 MG/DL (0.2-1.0); BLOOD UREA NITROGEN 11 mg/dL (7-18); CALCIUM 8.8 MG/DL (8.5-10.1); CARBON DIOXIDE 30 MMOL/L (21-32); CHLORIDE 99 MMOL/L (98-107); PHOSPHORUS 2.8 MG/DL (2.5-4.9); POTASSIUM 3.3 MMOL/L (3.5-5.1); SODIUM 136 MMOL/L (136-145)
[2017-04-06] MEDS: Promethazine/Codeine 5ml UD ORAL PRN ×2 (08:46→13:31)
[2017-04-06] MEDS: Aspirin EC 81mg tab ORAL SCH (08:46)
[2017-04-06] MEDS: Heparin 5000 units/ml inj SUBQ SCH ×2 (08:52→21:25)
--- NOTE | 2017-04-06 17:21 | Pulmonology Progress Note ---
Assessment/Plan Problems: (1) Respiratory distress (2) ACS (acute coronary syndrome) (3) Elevated troponin (4) Diabetes mellitus (5) Hypertension Assessment/Plan check sputum start abx check echo troponin lower cardiology f/u lots of sputum stress study when less cough and bronchitis better Subjective ROS Limited/Unobtainable: No Constitutional: Reports: no symptoms HEENT: Repors: no symptoms Respiratory: Reports: no symptoms Allergies: Coded Allergies: No Known Allergies (Unverified , 04/03/17) Objective Last 24 Hour Vital Signs Date Time Temp Pulse Resp B/P (MAP) Pulse Ox O2 Delivery O2 Flow Rate FiO2 04/06/17 16:00 98.2 71 20 126/76 98 Nasal Cannula 2.0 04/06/17 12:12 118/76 04/06/17 12:01 97.9 65 20 118/76 98 Nasal Cannula 2.0 04/06/17 12:00 66 04/06/17 08:00 98.2 63 20 129/85 97 Nasal Cannula 2.0 04/06/17 08:00 81 04/06/17 07:15 126/80 04/06/17 06:58 71 18 Nasal Cannula 3.0 32 04/06/17 06:58 97 Nasal Cannula 3.0 32 04/06/17 06:58 3.0 32 04/06/17 04:00 79 04/06/17 04:00 98.0 89 20 128/80 99 Nasal Cannula 2.0 04/06/17 00:00 98.1 85 20 126/80 97 Nasal Cannula 2.0 04/06/17 00:00 81 04/05/17 21:10 97 Nasal Cannula 2.0 28 04/05/17 21:10 Nasal Cannula 2.0 28 04/05/17 21:09 86 21 Nasal Cannula 2.0 28 04/05/17 20:00 99.3 91 21 143/87 97 Nasal Cannula 2.0 04/05/17 20:00 76 04/05/17 18:01 143/82 Intake and Output 04/05/17 04/06/17 19:00 07:00 Intake Total 500 ml Balance 500 ml Intake Oral 500 ml # Voids 2 Objective General Appearance: WD/WN, other - obtunded Lines, tubes and drains: peripheral HEENT: normocephalic, atraumatic Neck: non-tender, normal alignment Respiratory/Chest: chest wall non-tender, lungs clear Breasts: no masses, no discharge Cardiovascular/Chest: normal peripheral pulses Abdomen: normal bowel sounds Genitourinary/Rectal: normal genital exam Extremities: normal range of motion Skin Exam: normal pigmentation 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 Microbiology Date/Time Source Procedure Growth Status 04/03/17 20:46 Nasal Nares Influenza Types A,B Antigen (JOSE ANTONIO) - Final Complete 04/03/17 20:46 Urine,Clean Catch Urine Culture - Final Escherichia Coli Proteus Mirabilis Complete Laboratory Tests 04/05/17 21:45: Troponin I 0.176H 04/06/17 00:20: Troponin I 0.135H 04/06/17 06:30: White Blood Count 9.3, Red Blood Count 4.35L, Hemoglobin 12.9L, Hematocrit 37.3L , Mean Corpuscular Volume 86, Mean Corpuscular Hemoglobin 29.7, Mean Corpuscular Hemoglobin Concent 34.7, Red Cell Distribution Width 12.1, Platelet Count 340, Mean Platelet Volume 5.9L, Neutrophils (%) (Auto) 60.6, Lymphocytes ( %) (Auto) 21.7, Monocytes (%) (Auto) 15.9H, Eosinophils (%) (Auto) 0.2, Basophils (%) (Auto) 1.7, Erythrocyte Sedimentation Rate 48H, Sodium Level 136, Potassium Level 3.3L, Chloride Level 99, Carbon Dioxide Level 30, Anion Gap 7, Blood Urea Nitrogen 11, Creatinine 1.0, Estimat Glomerular Filtration Rate > 60 , Glucose Level 116H, Calcium Level 8.8, Phosphorus Level 2.8, Magnesium Level 1.8, Total Bilirubin 0.5, Aspartate Amino Transf (AST/SGOT) 20, Alanine Aminotransferase (ALT/SGPT) 22, Alkaline Phosphatase 67, C-Reactive Protein, Quantitative 12.9H, Total Protein 7.1, Albumin 3.0L, Globulin 4.1, Albumin/ Globulin Ratio 0.7L Current Medications Medications (Trade) Dose Ordered Sig/Edward Route PRN Reason Start Time Stop Time Status Last Admin Dose Admin Acetaminophen (Tylenol) 650 mg Q4H PRN ORAL FEVER 04/03/17 22:00 05/03/17 21:59 Albuterol/ Ipratropium (Albuterol/ Ipratropium) 3 ml EVERY 4 HOURS PRN HHN Shortness of Breath 04/03/17 22:00 04/08/17 21:59 04/05/17 00:06 Aspirin (Ecotrin) 81 mg DAILY ORAL 04/05/17 09:00 05/05/17 08:59 04/06/17 08:46 Atorvastatin Calcium (Lipitor) 80 mg BEDTIME ORAL 04/04/17 21:00 05/04/17 20:59 04/05/17 20:31 Azithromycin (Zithromax) 250 mg Q24H ORAL 04/06/17 22:00 04/13/17 21:59 Diltiazem HCl (Cardizem) 10 mg EVERY HOUR PRN IV heart rate more than 120, 04/03/17 22:00 05/03/17 21:59 Enalaprilat (Vasotec) 2.5 mg EVERY 6 HOURS PRN IV sbp more than 160 04/03/17 22:00 05/03/17 21:59 Heparin Sodium (Porcine) (Heparin 5000 units/ml) 5,000 units EVERY 12 HOURS SUBQ 04/04/17 09:00 05/04/17 08:59 04/06/17 08:52 Ketorolac Tromethamine (Toradol 30mg) 30 mg Q6HR PRN IV moderate pain ( 4-6) 04/03/17 22:00 04/08/17 21:59 Morphine Sulfate (Morphine Sulfate) 2 mg EVERY 4 HOURS PRN IVP severe Pain (Pain Scale 7-10) 04/03/17 22:00 04/10/17 21:59 Nitroglycerin (Nitro-Bid) 1 inch TID@0600,1200,1800 TOPIC 04/04/17 18:00 05/04/17 17:59 04/06/17 12:12 Nitroglycerin (Ntg) 0.4 mg Q5M PRN SL Prn Chest Pain 04/03/17 22:00 05/03/17 21:59 Ondansetron HCl (Zofran) 4 mg Q6H PRN IVP Nausea & Vomiting 04/03/17 22:00 05/03/17 21:59 Polyethylene Glycol (Miralax) 17 gm DAILYPRN PRN ORAL Constipation 04/03/17 22:00 05/03/17 21:59 Promethazine HCl/ Codeine (Phenergan with Codeine) 5 ml Q4H PRN ORAL For Cough 04/05/17 20:15 05/05/17 20:14 04/06/17 13:31 Temazepam (Restoril) 15 mg HSPRN PRN ORAL Insomnia 04/03/17 22:00 04/10/17 21:59 04/05/17 01:22 ILENE HANNA Apr 06, 2017 17:21
--- NOTE | 2017-04-06 19:35 | Cardiology Progress Note ---
Assessment/Plan Assessment/Plan nstemi dyspnea cardiac cause ? bronchospasm dm htn hld tobacco use do egk minor st changes echo normal wall motion persistently abn trop but no peak or ginger to be suggestive of mi has bornchospasm nwo off bb ntp statin ecotirn once bronchospasm improved an plum jimenez better will consider stress test still copius amount of secretions Subjective Cardiovascular: Denies: chest pain, lightheadedness Respiratory: Reports: cough, shortness of breath, SOB at rest Gastrointestinal/Abdominal: Denies: abdominal pain Genitourinary: Denies: burning Objective Last 24 Hour Vital Signs Date Time Temp Pulse Resp B/P (MAP) Pulse Ox O2 Delivery O2 Flow Rate FiO2 04/06/17 18:28 126/76 04/06/17 16:00 98.2 71 20 126/76 98 Nasal Cannula 2.0 04/06/17 16:00 72 04/06/17 12:12 118/76 04/06/17 12:01 97.9 65 20 118/76 98 Nasal Cannula 2.0 04/06/17 12:00 66 04/06/17 08:00 98.2 63 20 129/85 97 Nasal Cannula 2.0 04/06/17 08:00 81 04/06/17 07:15 126/80 04/06/17 06:58 71 18 Nasal Cannula 3.0 32 04/06/17 06:58 97 Nasal Cannula 3.0 32 04/06/17 06:58 3.0 32 04/06/17 04:00 79 04/06/17 04:00 98.0 89 20 128/80 99 Nasal Cannula 2.0 04/06/17 00:00 98.1 85 20 126/80 97 Nasal Cannula 2.0 04/06/17 00:00 81 04/05/17 21:10 97 Nasal Cannula 2.0 28 04/05/17 21:10 Nasal Cannula 2.0 28 04/05/17 21:09 86 21 Nasal Cannula 2.0 28 04/05/17 20:00 99.3 91 21 143/87 97 Nasal Cannula 2.0 04/05/17 20:00 76 General Appearance: no apparent distress Neck: supple Cardiovascular: normal rate Respiratory/Chest: rhonchi - bilaterally, expiratory wheezing Abdomen: normal bowel sounds, non tender, soft Extremities: no swelling Intake and Output 04/05/17 04/06/17 19:00 07:00 Intake Total 500 ml Balance 500 ml Intake Oral 500 ml # Voids 2 Laboratory Tests Test 04/05/17 21:45 04/06/17 00:20 04/06/17 06:30 Troponin I 0.176 ng/mL (0.000-0.056) 0.135 ng/mL (0.000-0.056) White Blood Count 9.3 K/UL (4.8-10.8) Red Blood Count 4.35 M/UL (4.70-6.10) L Hemoglobin 12.9 G/DL (14.2-18.0) L Hematocrit 37.3 % (42.0-52.0) L Mean Corpuscular Volume 86 FL (80-99) Mean Corpuscular Hemoglobin 29.7 PG (27.0-31.0) Mean Corpuscular Hemoglobin Concent 34.7 G/DL (32.0-36.0) Red Cell Distribution Width 12.1 % (11.6-14.8) Platelet Count 340 K/UL (150-450) Mean Platelet Volume 5.9 FL (6.5-10.1) L Neutrophils (%) (Auto) 60.6 % (45.0-75.0) Lymphocytes (%) (Auto) 21.7 % (20.0-45.0) Monocytes (%) (Auto) 15.9 % (1.0-10.0) H Eosinophils (%) (Auto) 0.2 % (0.0-3.0) Basophils (%) (Auto) 1.7 % (0.0-2.0) Erythrocyte Sedimentation Rate 48 MM/HR (0-20) H Sodium Level 136 MMOL/L (136-145) Potassium Level 3.3 MMOL/L (3.5-5.1) L Chloride Level 99 MMOL/L (98-107) Carbon Dioxide Level 30 MMOL/L (21-32) Anion Gap 7 mmol/L (5-15) Blood Urea Nitrogen 11 mg/dL (7-18) Creatinine 1.0 MG/DL (0.55-1.30) Estimat Glomerular Filtration Rate > 60 mL/min (>60) Glucose Level 116 MG/DL (74-106) H Calcium Level 8.8 MG/DL (8.5-10.1) Phosphorus Level 2.8 MG/DL (2.5-4.9) Magnesium Level 1.8 MG/DL (1.8-2.4) Total Bilirubin 0.5 MG/DL (0.2-1.0) Aspartate Amino Transf (AST/SGOT) 20 U/L (15-37) Alanine Aminotransferase (ALT/SGPT) 22 U/L (12-78) Alkaline Phosphatase 67 U/L (46-116) C-Reactive Protein, Quantitative 12.9 mg/dL (0.00-0.90) H Total Protein 7.1 G/DL (6.4-8.2) Albumin 3.0 G/DL (3.4-5.0) L Globulin 4.1 g/dL Albumin/Globulin Ratio 0.7 (1.0-2.7) L Microbiology Date/Time Source Procedure Growth Status 04/03/17 20:46 Nasal Nares Influenza Types A,B Antigen (JOSE ANTONIO) - Final Complete 04/03/17 20:46 Urine,Clean Catch Urine Culture - Final Escherichia Coli Proteus Mirabilis Complete EDD PERALES Apr 06, 2017 19:35
[2017-04-06] MEDS: Atorvastatin 80mg tab ORAL SCH (21:24)
[2017-04-06] MEDS ORDERED: Azithromycin 250mg tab ORAL SCH (22:00)
[2017-04-07] VITALS (7 sets, daily range): BP systolic 118–133; BP diastolic 64–84
[2017-04-07] MEDS: Nitroglycerin 2% oint pkt TOPIC SCH ×3 (05:50→18:24)
[2017-04-07] MEDS: Aspirin EC 81mg tab ORAL SCH (08:37)
[2017-04-07] MEDS: Heparin 5000 units/ml inj SUBQ SCH ×2 (08:40→21:15)
[2017-04-07] MEDS: Promethazine/Codeine 5ml UD ORAL PRN (10:53)
--- NOTE | 2017-04-07 11:55 | Infectious Diseases Prog Note ---
Assessment/Plan Assessment/Plan Cough- likely bronchitis -influenza neg - ScX: GNR Colonizer Dyspnea- suspec cardiac No PNA or PE on CT chest -CTA chest: Negative for evidence of acute pulmonary embolus. Areas of pulmonary parenchymal scarring and/or atelectasis as described. No acute pulmonary pathology otherwise. 17 mm diameter cutaneous lesion in the right chest wall. Correlate with clinical findings. Hepatic cysts. Subcentimeter low- attenuation hepatic lesions, too small to characterize, most likely benign simple cysts or bile hamartomas. No further follow-up necessary. Subcentimeter low-attenuation thyroid isthmic lesion. No further follow-up necessary. Afebrile no leukocytosis Asymptomatic bacteriuria -u/a neg; UCx: Ecoli and P mirabilis Plan: - Cont Iv Levaquin d# 1 / ( cough worsen and now productive ) 04/07 SP Azithromycin d# 3 SP Switch Zosyn #1 -f/u cx -Monitor CBC/BMP, temperatures -pulmonary toilette, aspiration precautions Subjective Allergies: Coded Allergies: No Known Allergies (Unverified , 04/03/17) Subjective afebrile Objective Vital Signs Last 24 Hour Vital Signs Date Time Temp Pulse Resp B/P (MAP) Pulse Ox O2 Delivery O2 Flow Rate FiO2 04/07/17 08:04 97.5 56 19 119/70 98 Nasal Cannula 2.0 04/07/17 08:00 58 04/07/17 05:50 122/74 04/07/17 04:00 59 04/07/17 04:00 98.4 66 20 130/64 98 Nasal Cannula 2.0 04/07/17 00:00 97.7 61 22 125/77 96 Nasal Cannula 2.0 04/07/17 00:00 67 04/06/17 20:00 72 04/06/17 20:00 98.1 63 22 116/76 96 Nasal Cannula 2.0 04/06/17 19:28 98 Nasal Cannula 3.0 32 04/06/17 19:28 79 20 Nasal Cannula 3.0 32 04/06/17 19:28 3.0 32 04/06/17 18:28 126/76 04/06/17 16:00 98.2 71 20 126/76 98 Nasal Cannula 2.0 04/06/17 16:00 72 04/06/17 12:12 118/76 04/06/17 12:01 97.9 65 20 118/76 98 Nasal Cannula 2.0 04/06/17 12:00 66 Height (Feet): 5 Height (Inches): 9.00 Weight (Pounds): 202 HEENT: anicteric Respiratory/Chest: normal breath sounds Cardiovascular: regularly irregular Abdomen: no organomegaly Microbiology Date/Time Source Procedure Growth Status 04/05/17 15:20 Sputum Gram Stain Pending Resulted 04/05/17 15:20 Sputum Culture - Preliminary Gram Negative Bacillus 1 Usual Upper Respiratory Ai Resulted Current Medications Medications (Trade) Dose Ordered Sig/Edward Route PRN Reason Start Time Stop Time Status Last Admin Dose Admin Acetaminophen (Tylenol) 650 mg Q4H PRN ORAL Mild Pain/Temp > 100.5 04/06/17 22:00 05/06/17 21:59 04/06/17 22:13 Albuterol/ Ipratropium (Albuterol/ Ipratropium) 3 ml EVERY 4 HOURS PRN HHN Shortness of Breath 04/03/17 22:00 04/08/17 21:59 04/05/17 00:06 Aspirin (Ecotrin) 81 mg DAILY ORAL 04/05/17 09:00 05/05/17 08:59 04/07/17 08:37 Atorvastatin Calcium (Lipitor) 80 mg BEDTIME ORAL 04/04/17 21:00 05/04/17 20:59 04/06/17 21:24 Azithromycin (Zithromax) 250 mg Q24H ORAL 04/06/17 22:00 04/13/17 21:59 04/06/17 21:34 Diltiazem HCl (Cardizem) 10 mg EVERY HOUR PRN IV heart rate more than 120, 04/03/17 22:00 05/03/17 21:59 Enalaprilat (Vasotec) 2.5 mg EVERY 6 HOURS PRN IV sbp more than 160 04/03/17 22:00 05/03/17 21:59 Heparin Sodium (Porcine) (Heparin 5000 units/ml) 5,000 units EVERY 12 HOURS SUBQ 04/04/17 09:00 05/04/17 08:59 04/07/17 08:40 Ketorolac Tromethamine (Toradol 30mg) 30 mg Q6HR PRN IV moderate pain ( 4-6) 04/03/17 22:00 04/08/17 21:59 Morphine Sulfate (Morphine Sulfate) 2 mg EVERY 4 HOURS PRN IVP severe Pain (Pain Scale 7-10) 04/03/17 22:00 04/10/17 21:59 Nitroglycerin (Nitro-Bid) 1 inch TID@0600,1200,1800 TOPIC 04/04/17 18:00 05/04/17 17:59 04/07/17 05:50 Nitroglycerin (Ntg) 0.4 mg Q5M PRN SL Prn Chest Pain 04/03/17 22:00 05/03/17 21:59 Ondansetron HCl (Zofran) 4 mg Q6H PRN IVP Nausea & Vomiting 04/03/17 22:00 05/03/17 21:59 Polyethylene Glycol (Miralax) 17 gm DAILYPRN PRN ORAL Constipation 04/03/17 22:00 05/03/17 21:59 Promethazine HCl/ Codeine (Phenergan with Codeine) 5 ml Q4H PRN ORAL For Cough 04/05/17 20:15 05/05/17 20:14 04/07/17 10:53 Temazepam (Restoril) 15 mg HSPRN PRN ORAL Insomnia 04/03/17 22:00 04/10/17 21:59 04/05/17 01:22 ROBERT YOO M.D. Apr 07, 2017 11:54
--- NOTE | 2017-04-07 14:47 | Pulmonology Progress Note ---
Assessment/Plan Problems: (1) Respiratory distress (2) ACS (acute coronary syndrome) (3) Elevated troponin (4) Diabetes mellitus (5) Hypertension Assessment/Plan check sputum, still pending start abx, levofloxacin was added check echo troponin lower cardiology f/u lots of sputum stress study when less cough and bronchitis better Subjective Constitutional: Reports: no symptoms Respiratory: Reports: no symptoms Allergies: Coded Allergies: No Known Allergies (Unverified , 04/03/17) Objective Last 24 Hour Vital Signs Date Time Temp Pulse Resp B/P (MAP) Pulse Ox O2 Delivery O2 Flow Rate FiO2 04/07/17 12:02 133/73 04/07/17 12:00 69 04/07/17 11:53 97.5 69 20 133/73 98 Nasal Cannula 2.0 04/07/17 08:04 97.5 56 19 119/70 98 Nasal Cannula 2.0 04/07/17 08:00 58 04/07/17 06:50 62 20 Nasal Cannula 3.0 32 04/07/17 06:50 3.0 32 04/07/17 06:50 95 Nasal Cannula 3.0 32 04/07/17 05:50 122/74 04/07/17 04:00 59 04/07/17 04:00 98.4 66 20 130/64 98 Nasal Cannula 2.0 04/07/17 00:00 97.7 61 22 125/77 96 Nasal Cannula 2.0 04/07/17 00:00 67 04/06/17 20:00 72 04/06/17 20:00 98.1 63 22 116/76 96 Nasal Cannula 2.0 04/06/17 19:28 98 Nasal Cannula 3.0 32 04/06/17 19:28 79 20 Nasal Cannula 3.0 32 04/06/17 19:28 3.0 32 04/06/17 18:28 126/76 04/06/17 16:00 98.2 71 20 126/76 98 Nasal Cannula 2.0 04/06/17 16:00 72 Intake and Output 04/06/17 04/07/17 19:00 07:00 Intake Total 850 ml Output Total 400 ml Balance 850 ml -400 ml Intake Oral 850 ml Output Urine Total 400 ml # Voids 5 # Bowel Movements 1 Objective General Appearance: WD/WN, other - obtunded Lines, tubes and drains: peripheral HEENT: normocephalic, atraumatic Neck: non-tender, normal alignment Respiratory/Chest: chest wall non-tender, lungs clear Breasts: no masses, no discharge Cardiovascular/Chest: normal peripheral pulses Abdomen: normal bowel sounds Genitourinary/Rectal: normal genital exam Extremities: normal range of motion Skin Exam: normal pigmentation 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 Microbiology Date/Time Source Procedure Growth Status 04/05/17 15:20 Sputum Gram Stain - Final Resulted 04/05/17 15:20 Sputum Culture - Preliminary Gram Negative Bacillus 1 Usual Upper Respiratory Ai Resulted Current Medications Medications (Trade) Dose Ordered Sig/Edward Route PRN Reason Start Time Stop Time Status Last Admin Dose Admin Acetaminophen (Tylenol) 650 mg Q4H PRN ORAL Mild Pain/Temp > 100.5 04/06/17 22:00 05/06/17 21:59 04/06/17 22:13 Albuterol/ Ipratropium (Albuterol/ Ipratropium) 3 ml EVERY 4 HOURS PRN HHN Shortness of Breath 04/03/17 22:00 04/08/17 21:59 04/05/17 00:06 Aspirin (Ecotrin) 81 mg DAILY ORAL 04/05/17 09:00 05/05/17 08:59 04/07/17 08:37 Atorvastatin Calcium (Lipitor) 80 mg BEDTIME ORAL 04/04/17 21:00 05/04/17 20:59 04/06/17 21:24 Diltiazem HCl (Cardizem) 10 mg EVERY HOUR PRN IV heart rate more than 120, 04/03/17 22:00 05/03/17 21:59 Enalaprilat (Vasotec) 2.5 mg EVERY 6 HOURS PRN IV sbp more than 160 04/03/17 22:00 05/03/17 21:59 Heparin Sodium (Porcine) (Heparin 5000 units/ml) 5,000 units EVERY 12 HOURS SUBQ 04/04/17 09:00 05/04/17 08:59 04/07/17 08:40 Ketorolac Tromethamine (Toradol 30mg) 30 mg Q6HR PRN IV moderate pain ( 4-6) 04/03/17 22:00 04/08/17 21:59 Levofloxacin 100 ml @ 100 mls/hr Q24H IVPB 04/07/17 15:00 04/14/17 14:59 Morphine Sulfate (Morphine Sulfate) 2 mg EVERY 4 HOURS PRN IVP severe Pain (Pain Scale 7-10) 04/03/17 22:00 04/10/17 21:59 Nitroglycerin (Nitro-Bid) 1 inch TID@0600,1200,1800 TOPIC 04/04/17 18:00 05/04/17 17:59 04/07/17 12:02 Nitroglycerin (Ntg) 0.4 mg Q5M PRN SL Prn Chest Pain 04/03/17 22:00 05/03/17 21:59 Ondansetron HCl (Zofran) 4 mg Q6H PRN IVP Nausea & Vomiting 04/03/17 22:00 05/03/17 21:59 Polyethylene Glycol (Miralax) 17 gm DAILYPRN PRN ORAL Constipation 04/03/17 22:00 05/03/17 21:59 Promethazine HCl/ Codeine (Phenergan with Codeine) 5 ml Q4H PRN ORAL For Cough 04/05/17 20:15 05/05/17 20:14 04/07/17 10:53 Temazepam (Restoril) 15 mg HSPRN PRN ORAL Insomnia 04/03/17 22:00 04/10/17 21:59 04/05/17 01:22 ILENE HANNA Apr 07, 2017 14:47
--- NOTE | 2017-04-07 18:56 | Cardiology Progress Note ---
Assessment/Plan Assessment/Plan nstemi dyspnea cardiac cause ? bronchospasm dm htn hld tobacco use do egk minor st changes echo normal wall motion persistently abn trop but no peak or ginger to be suggestive of mi has bornchospasm nwo off bb ntp statin ecotirn once bronchospasm improved an plum jimenez better will consider stress test ambualte Subjective Cardiovascular: Denies: chest pain, lightheadedness Respiratory: Reports: cough, sputum Gastrointestinal/Abdominal: Denies: abdominal pain Genitourinary: Denies: no symptoms Subjective not walked yet Objective Last 24 Hour Vital Signs Date Time Temp Pulse Resp B/P (MAP) Pulse Ox O2 Delivery O2 Flow Rate FiO2 04/07/17 18:24 118/84 04/07/17 16:00 97.5 65 20 118/84 99 Nasal Cannula 2.0 04/07/17 12:02 133/73 04/07/17 12:00 69 04/07/17 11:53 97.5 69 20 133/73 98 Nasal Cannula 2.0 04/07/17 08:04 97.5 56 19 119/70 98 Nasal Cannula 2.0 04/07/17 08:00 58 04/07/17 06:50 62 20 Nasal Cannula 3.0 32 04/07/17 06:50 3.0 32 04/07/17 06:50 95 Nasal Cannula 3.0 32 04/07/17 05:50 122/74 04/07/17 04:00 59 04/07/17 04:00 98.4 66 20 130/64 98 Nasal Cannula 2.0 04/07/17 00:00 97.7 61 22 125/77 96 Nasal Cannula 2.0 04/07/17 00:00 67 04/06/17 20:00 72 04/06/17 20:00 98.1 63 22 116/76 96 Nasal Cannula 2.0 04/06/17 19:28 98 Nasal Cannula 3.0 32 04/06/17 19:28 79 20 Nasal Cannula 3.0 32 04/06/17 19:28 3.0 32 General Appearance: no apparent distress, alert Neck: supple Cardiovascular: normal rate Respiratory/Chest: rhonchi - bilaterally Abdomen: normal bowel sounds, non tender, soft Extremities: no swelling Intake and Output 04/06/17 04/07/17 19:00 07:00 Intake Total 850 ml Output Total 400 ml Balance 850 ml -400 ml Intake Oral 850 ml Output Urine Total 400 ml # Voids 5 # Bowel Movements 1 Microbiology Date/Time Source Procedure Growth Status 04/05/17 15:20 Sputum Gram Stain - Final Resulted 04/05/17 15:20 Sputum Culture - Preliminary Gram Negative Bacillus 1 Usual Upper Respiratory Ai Resulted EDD PERALES Apr 07, 2017 18:56
[2017-04-07] MEDS: Atorvastatin 80mg tab ORAL SCH (21:15)
[2017-04-08] VITALS: BP 134/76
[2017-04-08 04:00] VITALS: BP 132/74
[2017-04-08] MEDS: Nitroglycerin 2% oint pkt TOPIC SCH ×3 (06:02→18:28)
[2017-04-08 08:00] VITALS: BP 135/67
[2017-04-08] MEDS: Aspirin EC 81mg tab ORAL SCH (09:09)
[2017-04-08] MEDS: Heparin 5000 units/ml inj SUBQ SCH ×2 (09:13→21:09)
[2017-04-08] MEDS: Promethazine/Codeine 5ml UD ORAL PRN (09:21)
--- NOTE | 2017-04-08 10:21 | Pulmonology Progress Note ---
Assessment/Plan Problems: (1) Respiratory distress (2) ACS (acute coronary syndrome) (3) Elevated troponin (4) Diabetes mellitus (5) Hypertension Assessment/Plan check sputum, Klebsiella, sensitive to Levofloxacine troponin lower cardiology f/u less sputum stress study when less cough and bronchitis better Subjective ROS Limited/Unobtainable: No Interval Events: less cough, less phlegmn Allergies: Coded Allergies: No Known Allergies (Unverified , 04/03/17) Objective Last 24 Hour Vital Signs Date Time Temp Pulse Resp B/P (MAP) Pulse Ox O2 Delivery O2 Flow Rate FiO2 04/08/17 08:12 73 18 Nasal Cannula 3.0 32 04/08/17 08:12 Nasal Cannula 3.0 32 04/08/17 08:12 95 Nasal Cannula 3.0 32 04/08/17 08:00 97.9 63 18 135/67 97 Nasal Cannula 2.0 04/08/17 08:00 69 04/08/17 06:02 123/77 04/08/17 04:00 71 04/08/17 04:00 97.7 67 16 132/74 97 04/08/17 00:00 72 04/08/17 00:00 97.2 67 16 134/76 97 04/07/17 23:56 98.0 71 18 132/74 98 04/07/17 20:00 73 04/07/17 20:00 98.1 65 18 130/77 95 04/07/17 19:30 94 Nasal Cannula 3.0 32 04/07/17 19:30 Nasal Cannula 3.0 32 04/07/17 19:30 65 20 Nasal Cannula 3.0 32 04/07/17 18:24 118/84 04/07/17 16:00 84 04/07/17 16:00 97.5 65 20 118/84 99 Nasal Cannula 2.0 04/07/17 12:02 133/73 04/07/17 12:00 69 04/07/17 11:53 97.5 69 20 133/73 98 Nasal Cannula 2.0 Intake and Output 04/07/17 04/08/17 19:00 07:00 Intake Total 800 ml 240 ml Balance 800 ml 240 ml Intake Oral 700 ml 240 ml IV Total 100 ml Objective General Appearance: WD/WN, other - obtunded Lines, tubes and drains: peripheral HEENT: normocephalic, atraumatic Neck: non-tender, normal alignment Respiratory/Chest: chest wall non-tender, lungs clear Breasts: no masses, no discharge Cardiovascular/Chest: normal peripheral pulses Abdomen: normal bowel sounds Genitourinary/Rectal: normal genital exam Extremities: normal range of motion Skin Exam: normal pigmentation 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 Microbiology Date/Time Source Procedure Growth Status 04/05/17 15:20 Sputum Gram Stain - Final Complete 04/05/17 15:20 Sputum Culture - Final Klebsiella Pneumoniae Usual Upper Respiratory Ai Complete Current Medications Medications (Trade) Dose Ordered Sig/Edward Route PRN Reason Start Time Stop Time Status Last Admin Dose Admin Acetaminophen (Tylenol) 650 mg Q4H PRN ORAL Mild Pain/Temp > 100.5 04/06/17 22:00 05/06/17 21:59 04/08/17 09:49 Albuterol/ Ipratropium (Albuterol/ Ipratropium) 3 ml EVERY 4 HOURS PRN HHN Shortness of Breath 04/03/17 22:00 04/08/17 21:59 04/05/17 00:06 Aspirin (Ecotrin) 81 mg DAILY ORAL 04/05/17 09:00 05/05/17 08:59 04/08/17 09:09 Atorvastatin Calcium (Lipitor) 80 mg BEDTIME ORAL 04/04/17 21:00 05/04/17 20:59 04/07/17 21:15 Diltiazem HCl (Cardizem) 10 mg EVERY HOUR PRN IV heart rate more than 120, 04/03/17 22:00 05/03/17 21:59 Enalaprilat (Vasotec) 2.5 mg EVERY 6 HOURS PRN IV sbp more than 160 04/03/17 22:00 05/03/17 21:59 Heparin Sodium (Porcine) (Heparin 5000 units/ml) 5,000 units EVERY 12 HOURS SUBQ 04/04/17 09:00 05/04/17 08:59 04/08/17 09:13 Ketorolac Tromethamine (Toradol 30mg) 30 mg Q6HR PRN IV moderate pain ( 4-6) 04/03/17 22:00 04/08/17 21:59 Levofloxacin 100 ml @ 100 mls/hr Q24H IVPB 04/07/17 15:00 04/14/17 14:59 04/07/17 14:48 Morphine Sulfate (Morphine Sulfate) 2 mg EVERY 4 HOURS PRN IVP severe Pain (Pain Scale 7-10) 04/03/17 22:00 04/10/17 21:59 Nitroglycerin (Nitro-Bid) 1 inch TID@0600,1200,1800 TOPIC 04/04/17 18:00 05/04/17 17:59 04/08/17 06:02 Nitroglycerin (Ntg) 0.4 mg Q5M PRN SL Prn Chest Pain 04/03/17 22:00 05/03/17 21:59 Ondansetron HCl (Zofran) 4 mg Q6H PRN IVP Nausea & Vomiting 04/03/17 22:00 05/03/17 21:59 Polyethylene Glycol (Miralax) 17 gm DAILYPRN PRN ORAL Constipation 04/03/17 22:00 05/03/17 21:59 Promethazine HCl/ Codeine (Phenergan with Codeine) 5 ml Q4H PRN ORAL For Cough 04/05/17 20:15 05/05/17 20:14 04/08/17 09:21 Temazepam (Restoril) 15 mg HSPRN PRN ORAL Insomnia 04/03/17 22:00 04/10/17 21:59 04/05/17 01:22 ILENE HANNA Apr 08, 2017 10:21
[2017-04-08 12:16] VITALS: BP 128/80
[2017-04-08 16:00] VITALS: BP 143/78
[2017-04-08] MEDS ORDERED: NS 275ml ONE (16:35)
[2017-04-08] MEDS ORDERED: Tubing IV Secondary IV ONE (16:35)
[2017-04-08 20:00] VITALS: BP 150/80
--- NOTE | 2017-04-08 20:41 | Cardiology Progress Note ---
Assessment/Plan Assessment/Plan atypical chest pain, stable at present time, will follow tomorrow, if he will stay, will arrange stress test, otherwise can have it as otuaptient Subjective Subjective the patient is resting comfortably denies chest pain or dyspena Objective Last 24 Hour Vital Signs Date Time Temp Pulse Resp B/P (MAP) Pulse Ox O2 Delivery O2 Flow Rate FiO2 04/08/17 20:00 97.9 65 16 150/80 98 04/08/17 18:28 143/78 04/08/17 16:00 98.4 66 18 143/78 98 Room Air 04/08/17 16:00 65 04/08/17 12:39 128/80 04/08/17 12:16 97.9 70 20 128/80 96 Room Air 04/08/17 12:00 84 04/08/17 10:48 97.9 04/08/17 08:12 73 18 Nasal Cannula 3.0 32 04/08/17 08:12 Nasal Cannula 3.0 32 04/08/17 08:12 95 Nasal Cannula 3.0 32 04/08/17 08:00 97.9 63 18 135/67 97 Nasal Cannula 2.0 04/08/17 08:00 69 04/08/17 06:02 123/77 04/08/17 04:00 71 04/08/17 04:00 97.7 67 16 132/74 97 04/08/17 00:00 72 04/08/17 00:00 97.2 67 16 134/76 97 04/07/17 23:56 98.0 71 18 132/74 98 General Appearance: no apparent distress EENT: PERRL/EOMI Neck: non-tender, no JVD Rhythm: NSR Cardiovascular: normal rate Respiratory/Chest: lungs clear Abdomen: soft Extremities: non-tender Intake and Output 04/07/17 04/08/17 19:00 07:00 Intake Total 800 ml 240 ml Balance 800 ml 240 ml Intake Oral 700 ml 240 ml IV Total 100 ml SHELLEY ZAZUETA Apr 08, 2017 20:41
[2017-04-08] MEDS: Atorvastatin 80mg tab ORAL SCH (21:07)
[2017-04-09] VITALS: BP 137/89
[2017-04-09 04:00] VITALS: BP 116/82
[2017-04-09] MEDS: Nitroglycerin 2% oint pkt TOPIC SCH ×3 (06:06→18:18)
[2017-04-09 08:00] VITALS: BP 144/78
[2017-04-09 08:36] LABS: BASOPHILS % (AUTO) 1.6 % (0.0-2.0); EOSINOPHILS % (AUTO) 1.9 % (0.0-3.0); HEMATOCRIT 38.7 % (42.0-52.0); HEMOGLOBIN 13.5 G/DL (14.2-18.0); LYMPHOCYTES % (AUTO) 33.7 % (20.0-45.0); MEAN CORPUSCULAR VOLUME 85 FL (80-99); MONOCYTES % (AUTO) 12.3 % (1.0-10.0); NEUTROPHILS % (AUTO) 50.5 % (45.0-75.0); PLATELET COUNT 427 K/UL (150-450); RED BLOOD COUNT 4.53 M/UL (4.70-6.10)
--- NOTE | 2017-04-09 08:59 | Pulmonology Progress Note ---
Assessment/Plan Problems: (1) Respiratory distress (2) ACS (acute coronary syndrome) (3) Elevated troponin (4) Diabetes mellitus (5) Hypertension Assessment/Plan check sputum, Klebsiella, sensitive to Levofloxacine troponin lower cardiology f/u less sputum stress study when less cough and bronchitis better Subjective ROS Limited/Unobtainable: No Allergies: Coded Allergies: No Known Allergies (Unverified , 04/03/17) Objective Last 24 Hour Vital Signs Date Time Temp Pulse Resp B/P (MAP) Pulse Ox O2 Delivery O2 Flow Rate FiO2 04/09/17 08:27 Room Air 04/09/17 08:27 97 Room Air 04/09/17 08:26 76 20 Room Air 04/09/17 08:00 97.7 59 18 144/78 96 04/09/17 06:06 126/88 04/09/17 04:00 97.7 69 20 116/82 98 04/09/17 04:00 58 04/09/17 02:02 96 Nasal Cannula 3.0 32 04/09/17 02:02 Nasal Cannula 3.0 32 04/09/17 02:01 67 18 Nasal Cannula 3.0 32 04/09/17 00:00 66 04/09/17 00:00 97.7 59 16 137/89 100 04/08/17 23:09 97.9 04/08/17 20:00 97.9 65 16 150/80 98 04/08/17 20:00 66 04/08/17 18:28 143/78 04/08/17 16:00 98.4 66 18 143/78 98 Room Air 04/08/17 16:00 65 04/08/17 12:39 128/80 04/08/17 12:16 97.9 70 20 128/80 96 Room Air 04/08/17 12:00 84 Intake and Output 04/08/17 04/09/17 19:00 07:00 Intake Total 460 ml Balance 460 ml Intake Oral 360 ml IV Total 100 ml # Voids 4 1 Objective General Appearance: WD/WN, other - obtunded Lines, tubes and drains: peripheral HEENT: normocephalic, atraumatic Neck: non-tender, normal alignment Respiratory/Chest: chest wall non-tender, lungs clear Breasts: no masses, no discharge Cardiovascular/Chest: normal peripheral pulses Abdomen: normal bowel sounds Genitourinary/Rectal: normal genital exam Extremities: normal range of motion Skin Exam: normal pigmentation 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 Laboratory Tests 04/09/17 07:52: White Blood Count 7.0, Red Blood Count 4.53L, Hemoglobin 13.5L, Hematocrit 38.7L , Mean Corpuscular Volume 85, Mean Corpuscular Hemoglobin 29.8, Mean Corpuscular Hemoglobin Concent 34.9, Red Cell Distribution Width 12.0, Platelet Count 427, Mean Platelet Volume 5.5L, Neutrophils (%) (Auto) 50.5, Lymphocytes ( %) (Auto) 33.7, Monocytes (%) (Auto) 12.3H, Eosinophils (%) (Auto) 1.9, Basophils (%) (Auto) 1.6, Sodium Level [Pending], Potassium Level [Pending], Chloride Level [Pending], Carbon Dioxide Level [Pending], Blood Urea Nitrogen [ Pending], Creatinine [Pending], Estimat Glomerular Filtration Rate [Pending], Glucose Level [Pending], Calcium Level [Pending], Phosphorus Level [Pending], Magnesium Level [Pending], Total Bilirubin [Pending], Aspartate Amino Transf ( AST/SGOT) [Pending], Alanine Aminotransferase (ALT/SGPT) [Pending], Alkaline Phosphatase [Pending], Total Protein [Pending], Albumin [Pending], Globulin [ Pending] Current Medications Medications (Trade) Dose Ordered Sig/Edward Route PRN Reason Start Time Stop Time Status Last Admin Dose Admin Acetaminophen (Tylenol) 650 mg Q4H PRN ORAL Mild Pain/Temp > 100.5 04/06/17 22:00 05/06/17 21:59 04/08/17 22:10 Aspirin (Ecotrin) 81 mg DAILY ORAL 04/05/17 09:00 05/05/17 08:59 04/08/17 09:09 Atorvastatin Calcium (Lipitor) 80 mg BEDTIME ORAL 04/04/17 21:00 05/04/17 20:59 04/08/17 21:07 Diltiazem HCl (Cardizem) 10 mg EVERY HOUR PRN IV heart rate more than 120, 04/03/17 22:00 05/03/17 21:59 Enalaprilat (Vasotec) 2.5 mg EVERY 6 HOURS PRN IV sbp more than 160 04/03/17 22:00 05/03/17 21:59 Heparin Sodium (Porcine) (Heparin 5000 units/ml) 5,000 units EVERY 12 HOURS SUBQ 04/04/17 09:00 05/04/17 08:59 04/08/17 21:09 Levofloxacin 100 ml @ 100 mls/hr Q24H IVPB 04/07/17 15:00 04/14/17 14:59 04/08/17 14:09 Morphine Sulfate (Morphine Sulfate) 2 mg EVERY 4 HOURS PRN IVP severe Pain (Pain Scale 7-10) 04/03/17 22:00 04/10/17 21:59 Nitroglycerin (Nitro-Bid) 1 inch TID@0600,1200,1800 TOPIC 04/04/17 18:00 05/04/17 17:59 04/09/17 06:06 Nitroglycerin (Ntg) 0.4 mg Q5M PRN SL Prn Chest Pain 04/03/17 22:00 05/03/17 21:59 Ondansetron HCl (Zofran) 4 mg Q6H PRN IVP Nausea & Vomiting 04/03/17 22:00 05/03/17 21:59 Polyethylene Glycol (Miralax) 17 gm DAILYPRN PRN ORAL Constipation 04/03/17 22:00 05/03/17 21:59 Promethazine HCl/ Codeine (Phenergan with Codeine) 5 ml Q4H PRN ORAL For Cough 04/05/17 20:15 05/05/17 20:14 04/08/17 09:21 Temazepam (Restoril) 15 mg HSPRN PRN ORAL Insomnia 04/03/17 22:00 04/10/17 21:59 04/05/17 01:22 ILENE HANNA Apr 09, 2017 08:59
[2017-04-09 09:11] LABS: ALANINE AMINOTRANSFERASE 28 U/L (12-78); ALBUMIN 3.3 G/DL (3.4-5.0); ALBUMIN/GLOBULIN RATIO 0.7 (1.0-2.7); ALKALINE PHOSPHATASE 65 U/L (46-116); ANION GAP 8 mmol/L (5-15); ASPARTATE AMINO TRANSFERASE 24 U/L (15-37); BILIRUBIN,TOTAL 0.6 MG/DL (0.2-1.0); BLOOD UREA NITROGEN 10 mg/dL (7-18); CALCIUM 9.4 MG/DL (8.5-10.1); CARBON DIOXIDE 28 MMOL/L (21-32); CHLORIDE 102 MMOL/L (98-107); PHOSPHORUS 3.4 MG/DL (2.5-4.9); POTASSIUM 3.7 MMOL/L (3.5-5.1); SODIUM 138 MMOL/L (136-145)
[2017-04-09] MEDS: Aspirin EC 81mg tab ORAL SCH (10:28)
[2017-04-09] MEDS: Heparin 5000 units/ml inj SUBQ SCH ×2 (10:31→20:45)
[2017-04-09 12:00] VITALS: BP 147/86
--- NOTE | 2017-04-09 12:58 | Infectious Diseases Prog Note ---
Assessment/Plan Assessment/Plan Cough- likely bronchitis improving -influenza neg - ScX: ( Kleb) Colonizer Dyspnea- suspec cardiac No PNA or PE on CT chest -CTA chest: Negative for evidence of acute pulmonary embolus. Areas of pulmonary parenchymal scarring and/or atelectasis as described. No acute pulmonary pathology otherwise. 17 mm diameter cutaneous lesion in the right chest wall. Correlate with clinical findings. Hepatic cysts. Subcentimeter low- attenuation hepatic lesions, too small to characterize, most likely benign simple cysts or bile hamartomas. No further follow-up necessary. Subcentimeter low-attenuation thyroid isthmic lesion. No further follow-up necessary. Afebrile no leukocytosis Asymptomatic bacteriuria -u/a neg; UCx: Ecoli and P mirabilis Plan: - Cont Iv Levaquin d# 3 / 5 ( productive cough improving) 04/07 SP Azithromycin d# 3 SP Switch Zosyn #1 -Monitor CBC/BMP, temperatures -pulmonary toilette, aspiration precautions Subjective Allergies: Coded Allergies: No Known Allergies (Unverified , 04/03/17) Subjective afebrile Cough and SOB improved Objective Vital Signs Last 24 Hour Vital Signs Date Time Temp Pulse Resp B/P (MAP) Pulse Ox O2 Delivery O2 Flow Rate FiO2 04/09/17 08:27 Room Air 04/09/17 08:27 97 Room Air 04/09/17 08:26 76 20 Room Air 04/09/17 08:00 97.7 59 18 144/78 96 04/09/17 06:06 126/88 04/09/17 04:00 97.7 69 20 116/82 98 04/09/17 04:00 58 04/09/17 02:02 96 Nasal Cannula 3.0 32 04/09/17 02:02 Nasal Cannula 3.0 32 04/09/17 02:01 67 18 Nasal Cannula 3.0 32 04/09/17 00:00 66 04/09/17 00:00 97.7 59 16 137/89 100 04/08/17 23:09 97.9 04/08/17 20:00 97.9 65 16 150/80 98 04/08/17 20:00 66 04/08/17 18:28 143/78 04/08/17 16:00 98.4 66 18 143/78 98 Room Air 04/08/17 16:00 65 Height (Feet): 5 Height (Inches): 9.00 Weight (Pounds): 202 HEENT: mucous membranes moist Respiratory/Chest: no respiratory distress Cardiovascular: regular rhythm Abdomen: no organomegaly Laboratory Tests Test 04/09/17 07:52 White Blood Count 7.0 K/UL (4.8-10.8) Red Blood Count 4.53 M/UL (4.70-6.10) L Hemoglobin 13.5 G/DL (14.2-18.0) L Hematocrit 38.7 % (42.0-52.0) L Mean Corpuscular Volume 85 FL (80-99) Mean Corpuscular Hemoglobin 29.8 PG (27.0-31.0) Mean Corpuscular Hemoglobin Concent 34.9 G/DL (32.0-36.0) Red Cell Distribution Width 12.0 % (11.6-14.8) Platelet Count 427 K/UL (150-450) Mean Platelet Volume 5.5 FL (6.5-10.1) L Neutrophils (%) (Auto) 50.5 % (45.0-75.0) Lymphocytes (%) (Auto) 33.7 % (20.0-45.0) Monocytes (%) (Auto) 12.3 % (1.0-10.0) H Eosinophils (%) (Auto) 1.9 % (0.0-3.0) Basophils (%) (Auto) 1.6 % (0.0-2.0) Sodium Level 138 MMOL/L (136-145) Potassium Level 3.7 MMOL/L (3.5-5.1) Chloride Level 102 MMOL/L (98-107) Carbon Dioxide Level 28 MMOL/L (21-32) Anion Gap 8 mmol/L (5-15) Blood Urea Nitrogen 10 mg/dL (7-18) Creatinine 1.0 MG/DL (0.55-1.30) Estimat Glomerular Filtration Rate > 60 mL/min (>60) Glucose Level 127 MG/DL (74-106) H Calcium Level 9.4 MG/DL (8.5-10.1) Phosphorus Level 3.4 MG/DL (2.5-4.9) Magnesium Level 2.0 MG/DL (1.8-2.4) Total Bilirubin 0.6 MG/DL (0.2-1.0) Aspartate Amino Transf (AST/SGOT) 24 U/L (15-37) Alanine Aminotransferase (ALT/SGPT) 28 U/L (12-78) Alkaline Phosphatase 65 U/L (46-116) Total Protein 7.9 G/DL (6.4-8.2) Albumin 3.3 G/DL (3.4-5.0) L Globulin 4.6 g/dL Albumin/Globulin Ratio 0.7 (1.0-2.7) L Current Medications Medications (Trade) Dose Ordered Sig/Edward Route PRN Reason Start Time Stop Time Status Last Admin Dose Admin Acetaminophen (Tylenol) 650 mg Q4H PRN ORAL Mild Pain/Temp > 100.5 04/06/17 22:00 05/06/17 21:59 04/08/17 22:10 Aspirin (Ecotrin) 81 mg DAILY ORAL 04/05/17 09:00 05/05/17 08:59 04/09/17 10:28 Atorvastatin Calcium (Lipitor) 80 mg BEDTIME ORAL 04/04/17 21:00 05/04/17 20:59 04/08/17 21:07 Diltiazem HCl (Cardizem) 10 mg EVERY HOUR PRN IV heart rate more than 120, 04/03/17 22:00 05/03/17 21:59 Enalaprilat (Vasotec) 2.5 mg EVERY 6 HOURS PRN IV sbp more than 160 04/03/17 22:00 05/03/17 21:59 Heparin Sodium (Porcine) (Heparin 5000 units/ml) 5,000 units EVERY 12 HOURS SUBQ 04/04/17 09:00 05/04/17 08:59 04/09/17 10:31 Levofloxacin 100 ml @ 100 mls/hr Q24H IVPB 04/07/17 15:00 04/14/17 14:59 04/08/17 14:09 Morphine Sulfate (Morphine Sulfate) 2 mg EVERY 4 HOURS PRN IVP severe Pain (Pain Scale 7-10) 04/03/17 22:00 04/10/17 21:59 Nitroglycerin (Nitro-Bid) 1 inch TID@0600,1200,1800 TOPIC 04/04/17 18:00 05/04/17 17:59 04/09/17 06:06 Nitroglycerin (Ntg) 0.4 mg Q5M PRN SL Prn Chest Pain 04/03/17 22:00 05/03/17 21:59 Ondansetron HCl (Zofran) 4 mg Q6H PRN IVP Nausea & Vomiting 04/03/17 22:00 05/03/17 21:59 Polyethylene Glycol (Miralax) 17 gm DAILYPRN PRN ORAL Constipation 04/03/17 22:00 05/03/17 21:59 Promethazine HCl/ Codeine (Phenergan with Codeine) 5 ml Q4H PRN ORAL For Cough 04/05/17 20:15 05/05/17 20:14 04/08/17 09:21 Temazepam (Restoril) 15 mg HSPRN PRN ORAL Insomnia 04/03/17 22:00 04/10/17 21:59 04/05/17 01:22 ROBERT YOO M.D. Apr 09, 2017 12:58
[2017-04-09 16:00] VITALS: BP 153/82
--- NOTE | 2017-04-09 17:15 | Cardiology Progress Note ---
Assessment/Plan Assessment/Plan atypical chest pain, stable at present time, will order stress test for tomorrow Subjective Subjective the patient is resting comfortably denies chest pain or dyspena Objective Last 24 Hour Vital Signs Date Time Temp Pulse Resp B/P (MAP) Pulse Ox O2 Delivery O2 Flow Rate FiO2 04/09/17 16:00 98.1 83 18 153/82 100 04/09/17 13:10 144/78 04/09/17 12:00 98.1 67 20 147/86 95 04/09/17 12:00 61 04/09/17 08:27 Room Air 04/09/17 08:27 97 Room Air 04/09/17 08:26 76 20 Room Air 04/09/17 08:00 97.7 59 18 144/78 96 04/09/17 08:00 63 04/09/17 06:06 126/88 04/09/17 04:00 97.7 69 20 116/82 98 04/09/17 04:00 58 04/09/17 02:02 96 Nasal Cannula 3.0 32 04/09/17 02:02 Nasal Cannula 3.0 32 04/09/17 02:01 67 18 Nasal Cannula 3.0 32 04/09/17 00:00 66 04/09/17 00:00 97.7 59 16 137/89 100 04/08/17 23:09 97.9 04/08/17 20:00 97.9 65 16 150/80 98 04/08/17 20:00 66 04/08/17 18:28 143/78 General Appearance: alert EENT: PERRL/EOMI Neck: non-tender Rhythm: NSR Cardiovascular: normal rate Respiratory/Chest: rhonchi - left Abdomen: non tender Intake and Output 04/08/17 04/09/17 19:00 07:00 Intake Total 460 ml Balance 460 ml Intake Oral 360 ml IV Total 100 ml # Voids 4 1 Laboratory Tests Test 04/09/17 07:52 White Blood Count 7.0 K/UL (4.8-10.8) Red Blood Count 4.53 M/UL (4.70-6.10) L Hemoglobin 13.5 G/DL (14.2-18.0) L Hematocrit 38.7 % (42.0-52.0) L Mean Corpuscular Volume 85 FL (80-99) Mean Corpuscular Hemoglobin 29.8 PG (27.0-31.0) Mean Corpuscular Hemoglobin Concent 34.9 G/DL (32.0-36.0) Red Cell Distribution Width 12.0 % (11.6-14.8) Platelet Count 427 K/UL (150-450) Mean Platelet Volume 5.5 FL (6.5-10.1) L Neutrophils (%) (Auto) 50.5 % (45.0-75.0) Lymphocytes (%) (Auto) 33.7 % (20.0-45.0) Monocytes (%) (Auto) 12.3 % (1.0-10.0) H Eosinophils (%) (Auto) 1.9 % (0.0-3.0) Basophils (%) (Auto) 1.6 % (0.0-2.0) Sodium Level 138 MMOL/L (136-145) Potassium Level 3.7 MMOL/L (3.5-5.1) Chloride Level 102 MMOL/L (98-107) Carbon Dioxide Level 28 MMOL/L (21-32) Anion Gap 8 mmol/L (5-15) Blood Urea Nitrogen 10 mg/dL (7-18) Creatinine 1.0 MG/DL (0.55-1.30) Estimat Glomerular Filtration Rate > 60 mL/min (>60) Glucose Level 127 MG/DL (74-106) H Calcium Level 9.4 MG/DL (8.5-10.1) Phosphorus Level 3.4 MG/DL (2.5-4.9) Magnesium Level 2.0 MG/DL (1.8-2.4) Total Bilirubin 0.6 MG/DL (0.2-1.0) Aspartate Amino Transf (AST/SGOT) 24 U/L (15-37) Alanine Aminotransferase (ALT/SGPT) 28 U/L (12-78) Alkaline Phosphatase 65 U/L (46-116) Total Protein 7.9 G/DL (6.4-8.2) Albumin 3.3 G/DL (3.4-5.0) L Globulin 4.6 g/dL Albumin/Globulin Ratio 0.7 (1.0-2.7) SHELLEY DICKENS Apr 09, 2017 17:15
[2017-04-09 20:00] VITALS: BP 155/85
[2017-04-09] MEDS: Atorvastatin 80mg tab ORAL SCH (20:44)
[2017-04-10] VITALS: BP 148/79
[2017-04-10] MEDS ORDERED: Lexiscan 0.4mg/5ml syringe IV PRN
[2017-04-10] MEDS: Nitroglycerin 2% oint pkt TOPIC SCH ×2 (06:00→11:38)
[2017-04-10 08:00] VITALS: BP 147/81
[2017-04-10] MEDS: Aspirin EC 81mg tab ORAL SCH (08:50)
[2017-04-10] MEDS: Heparin 5000 units/ml inj SUBQ SCH (08:51)
[2017-04-10] MEDS ORDERED: NS 500ML ONE (10:03)
[2017-04-10] MEDS ORDERED: Tubing IV Secondary IV ONE (10:03)
[2017-04-10] MEDS ORDERED: Levofloxacin 500mg tab ORAL SCH (11:00)
[2017-04-10 11:22] LABS: BASOPHILS % (AUTO) 1.6 % (0.0-2.0); EOSINOPHILS % (AUTO) 1.3 % (0.0-3.0); HEMATOCRIT 41.4 % (42.0-52.0); HEMOGLOBIN 13.7 G/DL (14.2-18.0); MEAN CORPUSCULAR VOLUME 86 FL (80-99); MONOCYTES % (AUTO) 11.8 % (1.0-10.0); NEUTROPHILS % (AUTO) 56.5 % (45.0-75.0); PLATELET COUNT 476 K/UL (150-450); RED BLOOD COUNT 4.83 M/UL (4.70-6.10); RED CELL DISTRIBUTION WIDTH 12.1 % (11.6-14.8); WHITE BLOOD COUNT 6.9 K/UL (4.8-10.8)
[2017-04-10 11:34] LABS: ALANINE AMINOTRANSFERASE 44 U/L (12-78); ALBUMIN 3.6 G/DL (3.4-5.0); ALBUMIN/GLOBULIN RATIO 0.9 (1.0-2.7); ALKALINE PHOSPHATASE 76 U/L (46-116); ANION GAP 8 mmol/L (5-15); ASPARTATE AMINO TRANSFERASE 36 U/L (15-37); BILIRUBIN,TOTAL 0.3 MG/DL (0.2-1.0); BLOOD UREA NITROGEN 8 mg/dL (7-18); CALCIUM 9.7 MG/DL (8.5-10.1); CARBON DIOXIDE 28 MMOL/L (21-32); CHLORIDE 102 MMOL/L (98-107); CREATININE 0.9 MG/DL (0.55-1.30); PHOSPHORUS 2.6 MG/DL (2.5-4.9); POTASSIUM 3.9 MMOL/L (3.5-5.1); SODIUM 138 MMOL/L (136-145)
[2017-04-10 12:00] VITALS: BP 157/90
[2017-04-10] MEDS ORDERED: ASPIRIN EC81 MG ORAL (12:11)
[2017-04-10] MEDS ORDERED: LEVAQUIN500 MG ORAL (12:11)
[2017-04-10] MEDS ORDERED: LIPITOR80 MG ORAL (12:11)
--- NOTE | 2017-04-10 12:17 | Pulmonology Progress Note ---
Assessment/Plan Problems: (1) Respiratory distress (2) ACS (acute coronary syndrome) (3) Elevated troponin (4) Diabetes mellitus (5) Hypertension Assessment/Plan check sputum, Klebsiella, sensitive to Levofloxacine troponin lower cardiology f/u less sputum stress study today dc home if negative wtih po abx Subjective ROS Limited/Unobtainable: No HEENT: Repors: no symptoms Respiratory: Reports: no symptoms Allergies: Coded Allergies: No Known Allergies (Unverified , 04/03/17) Objective Last 24 Hour Vital Signs Date Time Temp Pulse Resp B/P (MAP) Pulse Ox O2 Delivery O2 Flow Rate FiO2 04/10/17 11:38 147/81 04/10/17 08:00 96.0 73 20 147/81 93 04/10/17 07:12 87 18 Room Air 21 04/10/17 07:12 Room Air 21 04/10/17 07:12 98 Room Air 21 04/10/17 06:00 148/79 04/10/17 04:00 68 04/10/17 00:00 97.5 58 20 148/79 96 04/10/17 00:00 64 04/09/17 20:00 69 04/09/17 20:00 97.9 65 21 155/85 95 04/09/17 19:30 80 20 Room Air 21 04/09/17 19:30 Room Air 21 04/09/17 19:30 94 Room Air 21 04/09/17 18:18 153/82 04/09/17 16:00 98.1 83 18 153/82 100 04/09/17 16:00 70 04/09/17 13:10 144/78 Intake and Output 04/09/17 04/10/17 19:00 07:00 Intake Total 360 ml Balance 360 ml Intake Oral 360 ml # Voids 2 2 Objective General Appearance: WD/WN, other - obtunded Lines, tubes and drains: peripheral HEENT: normocephalic, atraumatic Neck: non-tender, normal alignment Respiratory/Chest: chest wall non-tender, lungs clear Breasts: no masses, no discharge Cardiovascular/Chest: normal peripheral pulses Abdomen: normal bowel sounds Genitourinary/Rectal: normal genital exam Extremities: normal range of motion Skin Exam: normal pigmentation 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 Laboratory Tests 04/10/17 10:35: White Blood Count 6.9, Red Blood Count 4.83, Hemoglobin 13.7L, Hematocrit 41.4L , Mean Corpuscular Volume 86, Mean Corpuscular Hemoglobin 28.4, Mean Corpuscular Hemoglobin Concent 33.2, Red Cell Distribution Width 12.1, Platelet Count 476H, Mean Platelet Volume 5.5L, Neutrophils (%) (Auto) 56.5, Lymphocytes (%) (Auto) 29.0, Monocytes (%) (Auto) 11.8H, Eosinophils (%) (Auto) 1.3, Basophils (%) (Auto) 1.6, Erythrocyte Sedimentation Rate [Pending], Sodium Level 138, Potassium Level 3.9, Chloride Level 102, Carbon Dioxide Level 28, Anion Gap 8, Blood Urea Nitrogen 8, Creatinine 0.9, Estimat Glomerular Filtration Rate > 60, Glucose Level 106, Calcium Level 9.7, Phosphorus Level 2.6 , Magnesium Level 2.0, Total Bilirubin 0.3, Aspartate Amino Transf (AST/SGOT) 36 , Alanine Aminotransferase (ALT/SGPT) 44, Alkaline Phosphatase 76, Troponin I 0.015, Total Protein 7.8, Albumin 3.6, Globulin 4.2, Albumin/Globulin Ratio 0.9L Current Medications Medications (Trade) Dose Ordered Sig/Edward Route PRN Reason Start Time Stop Time Status Last Admin Dose Admin Acetaminophen (Tylenol) 650 mg Q4H PRN ORAL Mild Pain/Temp > 100.5 04/06/17 22:00 05/06/17 21:59 04/09/17 16:23 Aspirin (Ecotrin) 81 mg DAILY ORAL 04/05/17 09:00 05/05/17 08:59 04/10/17 08:50 Atorvastatin Calcium (Lipitor) 80 mg BEDTIME ORAL 04/04/17 21:00 05/04/17 20:59 04/09/17 20:44 Diltiazem HCl (Cardizem) 10 mg EVERY HOUR PRN IV heart rate more than 120, 04/03/17 22:00 05/03/17 21:59 Enalaprilat (Vasotec) 2.5 mg EVERY 6 HOURS PRN IV sbp more than 160 04/03/17 22:00 05/03/17 21:59 Heparin Sodium (Porcine) (Heparin 5000 units/ml) 5,000 units EVERY 12 HOURS SUBQ 04/04/17 09:00 05/04/17 08:59 04/10/17 08:51 Levofloxacin (Levaquin) 500 mg DAILY ORAL 04/10/17 11:00 04/17/17 10:59 04/10/17 11:38 Morphine Sulfate (Morphine Sulfate) 2 mg EVERY 4 HOURS PRN IVP severe Pain (Pain Scale 7-10) 04/03/17 22:00 04/10/17 21:59 Nitroglycerin (Nitro-Bid) 1 inch TID@0600,1200,1800 TOPIC 04/04/17 18:00 05/04/17 17:59 04/10/17 11:38 Nitroglycerin (Ntg) 0.4 mg Q5M PRN SL Prn Chest Pain 04/03/17 22:00 05/03/17 21:59 Ondansetron HCl (Zofran) 4 mg Q6H PRN IVP Nausea & Vomiting 04/03/17 22:00 05/03/17 21:59 Polyethylene Glycol (Miralax) 17 gm DAILYPRN PRN ORAL Constipation 04/03/17 22:00 05/03/17 21:59 Promethazine HCl/ Codeine (Phenergan with Codeine) 5 ml Q4H PRN ORAL For Cough 04/05/17 20:15 05/05/17 20:14 04/08/17 09:21 Regadenoson (Lexiscan) 0.4 mg ONCE PRN IV STRESS TEST 04/10/17 00:00 04/10/17 23:59 Temazepam (Restoril) 15 mg HSPRN PRN ORAL Insomnia 04/03/17 22:00 04/10/17 21:59 04/05/17 01:22 ILENE HANNA Apr 10, 2017 12:16
[2017-04-10 16:00] VITALS: BP 134/78
--- NOTE | 2017-04-10 17:00 | Diagnostic Imaging Report ---
Indication: chest pain Technique: The study was conducted under the supervision of a hitcher. lexiscan (regadenoson) infusion over 10 seconds followed by intravenous administration of 32.6 mCi of technetium 99m Myoview was performed. Three plane SPECT imaging of the heart was then performed. A resting study was performed as part of the one-day protocol with 10.1 mCi of technetium 99m myoview injected intravenously at that time. Three plane SPECT imaging of the heart was obtained. Comparison: None Clinical data: 1. Clinical response: Non ischemic 2. Electrocardiographic response: Non ischemic Findings: The myocardial perfusion scan demonstrates diminished perfusion involving the inferior wall. This could be due to old, nontransmural infarct or diaphragmatic attenuation. Please correlate clinically. No reversible segments are seen. Left ventricular ejection fraction is estimated at 70%. IMPRESSION: Diminished perfusion involving the inferior wall. Suspect diaphragmatic attenuation. Small infarct not excluded. Please correlate clinically. LVEF 70%
--- NOTE | 2017-04-11 13:17 | Diagnostic Imaging Report ---
APPROVED REPORT CPT Code: 44327 Present Symptoms Shortness of breath BILATERAL: Imaging reveals a patent deep venous system bilaterally. There is no evidence of thrombus within the femoral, popliteal or tibial segments. The greater saphenous veins are also within normal limits. Doppler indicates normal spontaneous flow within these segments.
--- NOTE | 2017-04-12 13:00 | Discharge Summary ---
Discharge Summary Hospital Course Date of Admission Apr 03, 2017 at 22:04 Date of Discharge Apr 10, 2017 at 19:04 Admitting Diagnosis SOB/elevated trop HPI Victor Manuel Chavez is a 61 year old male who was admitted on Apr 03, 2017 at 22:04 for Shortness Of Breath/Elevated Troponin Hospital Course dc summary #[id number] Discharge Medications New Medications: Aspirin Ec* (Aspirin Ec*) 81 Mg Tablet.dr 81 MG ORAL DAILY for 30 Days, TAB Atorvastatin (Lipitor) 80 Mg Tablet 80 MG ORAL BEDTIME for 30 Days, TAB Levofloxacin* (Levaquin*) 500 Mg Tablet 500 MG ORAL DAILY for 30 Days, TAB Discharge Condition Upon Discharge: stable Discharge Disposition Patient was discharged to Home (01) Discharge Diagnoses: Discharge Instructions Discharge Instructions Special Instructions I have been assigned to complete a D/C Summary on this account. I was not involved in the patient management Meenakshi Armendariz NP ([facility]) Apr 12, 2017 13:00
--- NOTE | 2017-04-13 04:45 | Discharge Summary 2 SIG ---
DATE OF ADMISSION: 04/03/2017 DATE OF DISCHARGE: 04/10/2017 REASON FOR ADMISSION: 61-year-old male with history of diabetes, hypertension, and tobacco use disorder, presented with complaint of shortness of breath and wheezing. Initially, denied chest pain. No fever. No chills. Reported some cough. Upon evaluation, the patient was found to have elevated troponin. Aspirin and nitroglycerin given in the emergency department. First troponin -0.193. EKG showed sinus tachycardia. The patient was admitted with elevated troponin, rule out acute coronary syndrome, and respiratory distress. HOSPITAL COURSE: The patient was admitted to monitored floor. Cardiology consult was requested. Serial troponin were followed. The patient did have elevated troponin with no peak or ginger to be suggestive of SD, however, the patient had minor ST changes on EKG and possible non-STEMI. The patient initially was placed on beta-sarthak, but then beta-sarthak discontinued secondary to bronchospasm. Nitroglycerin paste, statin, and Ecotrin started initially. Lipid panel revealed elevated total cholesterol and elevated LDL. Statin was continued. Echocardiogram revealed preserved ejection fraction of 65% to 70% and diastolic grade 2 dysfunction as well as moderate left ventricular hypertrophy. No evidence of wall motion abnormalities. CTA of the chest revealed no evidence of acute PE. Venous duplex of bilateral lower extremities was negative. The patient subsequently undergone stress test after bronchospasm resolved, which revealed calculated ejection fraction of 70% and diminished perfusion infarct involving the inferior wall suspecting diaphragmatic attenuation, correlate clinically. The patient had total of eight serial troponin done, seven of eight were minimally elevated. Troponin levels were flat. No peak. No ginger. Bulb Packer cleared the patient for discharge, and advised to follow up with cigar making machine supervisor as outpatient. The patient was on empiric antibiotics. Infectious Diseases specialist followed. Urine culture revealed E. coli and Proteus. Per Infectious Disease, no urinary symptoms, likely asymptomatic bacteriuria. Sputum culture revealed Klebsiella, however, no evidence of pneumonia on the CTA of the chest. Sputum Klebsiella likely colonizer. Antitussive provided as needed. Supplemental oxygen provided as needed to keep pulse oximetry above 92%. Pulmonary toilet was provided as needed with bronchodilators. Bronchospasm quickly resolved. Pulse oximetry was stable on room air. Blood sugar was stable. Blood pressure was managed with current regimen and remained stable. DVT prophylaxis provided. Electrolytes were closely monitored and corrected as needed. Low TSH noted. The patient to follow up with thyroid function test in one month. The patient was stable for discharge home. Follow up with the primary care provider next week. Follow up with the cigar making machine supervisor as advised. Patient was counseled on smoking cessation. FINAL DIAGNOSES: 1. Chest pain with concern for acute coronary syndrome. 2. Non-ST elevation myocardial infarction. 3. Bronchospasm 4. Likely acute bronchitis. 5. Diabetes. 6. Hypertension. 7. Tobacco use disorder. 8. Hyperlipidemia 9. Asymptomatic bacteriuria. DISCHARGE MEDICATIONS: See medication reconciliation list. DISCHARGE INSTRUCTIONS: The patient discharged home. Follow up with the primary care provider next week. Follow up with the cigar making machine supervisor as advised. . Rea Castellon M.D. I have been assigned to dictate discharge summary on this account and I was not involved in the patient's management. Meenakshi AponteFour Winds Psychiatric HospitalEliza N.PKristen DR: Luna JOB#: [id number] CC: JUSTIN
== END 2017-04-10 19:04 | disposition home or self-care (01) | DRG 282 ==
LOC: EDBD 20:01 → EMR 21:38 → EDBD 22:04 → 2E 22:04 → EDBEDREQ 23:30
DX: I21.4 Non-ST elevation (NSTEMI) myocardial infarction (principal); E11.9 Type 2 diabetes mellitus without complications; I10 Essential (primary) hypertension; E78.5 Hyperlipidemia, unspecified; F17.210 Nicotine dependence, cigarettes, uncomplicated; J40 Bronchitis, not specified as acute or chronic; R82.71 Bacteriuria
CPT/HCPCS: 36415; 71045; 71275; 78452; 80048; 80053; 80061; 81003; 82550; 82553; 83605; 83735; 83880; 84100; 84443; 84484; 85007; 85025; 85610; 85651; 85730; 86140; 86710; 87070; 87086; 87181; 87205; 93005; 93017; 93306; 93970; 94640; 94664; 94760; 99285; J2785; J7620; J8499

== ENCOUNTER 2017-04-11 07:31 | Emergency (ER) | payer OTHER ==
[~2017-04-11] VITALS: Ht 177.8 cm; Wt 81.6 kg
[~2017-04-11 07:31] MED LIST: ASPIRIN EC81 MG ORAL; ATORVASTATIN CA20 MG ORAL; LEVAQUIN500 MG ORAL; LIPITOR80 MG ORAL; METFORMIN HCL500 M1 ORAL; MICROZIDE12.5 M1 PO
[2017-04-11 07:47] VITALS: BP 157/100
[2017-04-11 08:15] LABS: BASOPHILS % (AUTO) 1.8 % (0.0-2.0); EOSINOPHILS % (AUTO) 1.1 % (0.0-3.0); HEMATOCRIT 40.9 % (42.0-52.0); LYMPHOCYTES % (AUTO) 25.2 % (20.0-45.0); MEAN CORPUSCULAR VOLUME 84 FL (80-99); MONOCYTES % (AUTO) 12.5 % (1.0-10.0); NEUTROPHILS % (AUTO) 59.4 % (45.0-75.0); PLATELET COUNT 466 K/UL (150-450); RED BLOOD COUNT 4.86 M/UL (4.70-6.10); WHITE BLOOD COUNT 8.5 K/UL (4.8-10.8)
[2017-04-11 08:21] LABS: ANION GAP 8 mmol/L (5-15); BLOOD UREA NITROGEN 10 mg/dL (7-18); CALCIUM 9.3 MG/DL (8.5-10.1); CARBON DIOXIDE 27 MMOL/L (21-32); CHLORIDE 102 MMOL/L (98-107); CREATININE 1.1 MG/DL (0.55-1.30); POTASSIUM 3.4 MMOL/L (3.5-5.1); SODIUM 137 MMOL/L (136-145)
[2017-04-11 08:32] LABS: ALANINE AMINOTRANSFERASE 46 U/L (12-78); ALBUMIN 3.5 G/DL (3.4-5.0); ALBUMIN/GLOBULIN RATIO 0.7 (1.0-2.7); ALKALINE PHOSPHATASE 74 U/L (46-116); ASPARTATE AMINO TRANSFERASE 36 U/L (15-37); BILIRUBIN,TOTAL 0.3 MG/DL (0.2-1.0)
--- NOTE | 2017-04-11 09:20 | Emergency Room Report ---
History of Present Illness General Chief Complaint: Chest Pain Source: Patient Present Illness HPI 61-year-old male with pmhx of HTN, DM p/w chest pain for one day. Chest pain started while sleeping, woke him up. Localized to substernal area, no radiation to back or other areas, sharp in nature, gradual in onset, lasted more than one hour, no SOB. Denies palpitations, diaphoresis, n/v. Denies fever, chills, cough, abd pain. Denies trauma. Patient was just discharged from the hospital yesterday for chest pain, had a mildly elevated troponin that normalized. Patient stated that he had a stress test which was normal Patient was given aspirin and nitroglycerin by EMS Allergies: Coded Allergies: No Known Allergies (Unverified , 04/03/17) Patient History Past Medical History: see triage record Past Surgical History: none Pertinent Family History: none Reviewed Nursing Documentation: PMH: Agreed, PSxH: Agreed Nursing Documentation-PMH Hx Hypertension: Yes Hx Diabetes: Yes Hx Cancer: No Hx Gastrointestinal Problems: No Hx Neurological Problems: No Review of Systems All Other Systems: negative except mentioned in HPI Physical Exam Vital Signs Date Time Temp Pulse Resp B/P (MAP) Pulse Ox O2 Delivery O2 Flow Rate FiO2 04/11/17 07:32 97.8 88 20 179/101 97 Room Air 97.9 Sp02 EP Interpretation: reviewed, normal General Appearance: normal inspection, well appearing, no apparent distress, alert, GCS 15, non-toxic Head: normocephalic, atraumatic Eyes: bilateral eye normal inspection, bilateral eye PERRL, bilateral eye EOMI ENT: normal ENT inspection, normal pharynx, normal voice, moist mucus membranes Neck: normal inspection, full range of motion, supple Respiratory: normal inspection, lungs clear, normal breath sounds, no respiratory distress, no retraction, no wheezing, speaking full sentences, chest symmetrical Cardiovascular #1: normal inspection, regular rate, rhythm, no edema, normal capillary refill Cardiovascular #2: 2+ radial (R), 2+ radial (L) Gastrointestinal: normal inspection, non tender, soft, non-distended, no guarding Genitourinary: no CVA tenderness Musculoskeletal: normal inspection, back normal, normal range of motion, non- tender Neurologic: normal inspection, alert, oriented x3, responsive, motor strength/ tone normal, sensory intact, normal gait, speech normal Psychiatric: normal inspection, judgement/insight normal, memory normal Skin: normal inspection, normal color, no rash, warm/dry, well hydrated, normal turgor Medical Decision Making Diagnostic Impression: Primary Impression: Chest pain ER Course 60 yo M CP DDX: ACS vs. CHF vs. pneumonia vs. gastritis/GERD vs. pneumothorax Plan: IV access, obtain labs including troponin, EKG, CXR ER course: Patient was treated with ASA by EMS Patient has remained on a monitor, HD stable, chest pain improved. trop neg x 2 he has been comfortable during STAY Disposition: DCed home with PMD fu Optics Engineer fu in 1 week Please note that this Emergency Department Report was dictated using [employer] software, occasionally this can lead to erroneous entry secondary to interpretation by the dictation equipment. EKG Diagnostic Results EP Interpretation: Yes Rate: normal Rhythm: NSR ST Segments: T wave inversion lead 3 and aVF ASA given to patient: Yes Rhythm Strip EP Interpretation: Yes Rate: 70 Rhythm: NSR, no PVCs, no ectopy Chest X-ray CXR: Ordered: Yes 1 view Indication: Chest pain EP interpretation: Yes Interpretation: No consolidation, no effusion, no PTX, no acute cardiopulmonary disease Impression: No acute disease Electronically signed by Jai Kline MD Laboratory Tests Test 04/11/17 07:40 04/11/17 10:32 White Blood Count 8.5 K/UL (4.8-10.8) Red Blood Count 4.86 M/UL (4.70-6.10) Hemoglobin 14.0 G/DL (14.2-18.0) L Hematocrit 40.9 % (42.0-52.0) L Mean Corpuscular Volume 84 FL (80-99) Mean Corpuscular Hemoglobin 28.8 PG (27.0-31.0) Mean Corpuscular Hemoglobin Concent 34.2 G/DL (32.0-36.0) Red Cell Distribution Width 12.0 % (11.6-14.8) Platelet Count 466 K/UL (150-450) H Mean Platelet Volume 5.3 FL (6.5-10.1) L Neutrophils (%) (Auto) 59.4 % (45.0-75.0) Lymphocytes (%) (Auto) 25.2 % (20.0-45.0) Monocytes (%) (Auto) 12.5 % (1.0-10.0) H Eosinophils (%) (Auto) 1.1 % (0.0-3.0) Basophils (%) (Auto) 1.8 % (0.0-2.0) Sodium Level 137 MMOL/L (136-145) Potassium Level 3.4 MMOL/L (3.5-5.1) L Chloride Level 102 MMOL/L (98-107) Carbon Dioxide Level 27 MMOL/L (21-32) Anion Gap 8 mmol/L (5-15) Blood Urea Nitrogen 10 mg/dL (7-18) Creatinine 1.1 MG/DL (0.55-1.30) Estimate Glomerular Filtration Rate > 60 mL/min (>60) Glucose Level 129 MG/DL (74-106) H Calcium Level 9.3 MG/DL (8.5-10.1) Total Bilirubin 0.3 MG/DL (0.2-1.0) Aspartate Amino Transferase (AST) 36 U/L (15-37) Alanine Aminotransferase (ALT) 46 U/L (12-78) Alkaline Phosphatase 74 U/L (46-116) Troponin I 0.008 ng/mL (0.000-0.056) 0.019 ng/mL (0.000-0.056) Pro-B-Type Natriuretic Peptide 51 pg/mL (0-125) Total Protein 8.2 G/DL (6.4-8.2) Albumin 3.5 G/DL (3.4-5.0) Globulin 4.7 g/dL Albumin/Globulin Ratio 0.7 (1.0-2.7) L Last Vital Signs Date Time Temp Pulse Resp B/P (MAP) Pulse Ox O2 Delivery O2 Flow Rate FiO2 04/11/17 07:47 87 15 157/100 98 Room Air 04/11/17 07:32 97.8 97.9 Disposition: HOME, SELF-CARE Condition: Improved Referrals: NOT CHOSEN IPA/,REFERRING (PCP) Jai Kline M.D. Apr 11, 2017 09:20
[2017-04-11 09:44] VITALS: BP 145/83
--- NOTE | 2017-04-11 10:11 | Diagnostic Imaging Report ---
Indication: Chest pain Comparison: 04/03/2017 A single view chest radiograph was obtained. Findings: No definite infiltrate or pulmonary vascular congestion identified. The heart is enlarged. The aorta is mildly enlarged consistent with atherosclerotic vascular disease. The bones are osteopenic. Impression: No acute disease
[2017-04-11 11:40] VITALS: BP 150/90
--- NOTE | 2017-04-14 14:49 | Cardiology Report ---
APPROVED REPORT EKG Measurement Heart [id number] NE [id number] Normal sinus rhythm Possible Left atrial enlargement T wave abnormality, consider inferior ischemia Abnormal ECG
== END 2017-04-11 11:41 | disposition home or self-care (01) ==
LOC: EDBD 07:31 → EDUNIT# 07:31 → EMR 08:04
DX: R07.89 Other chest pain (principal); I10 Essential (primary) hypertension; E11.9 Type 2 diabetes mellitus without complications
CPT/HCPCS: 36415; 71045; 80053; 83880; 84484; 85025; 93005; 99284